=== PATIENT | male | born 1940 | race Hispanic/Latino ===

== ENCOUNTER 2020-04-22 14:17 | Emergency (ER) | payer OTHER, MEDICARE ==
[2020-04-22] MEDS ORDERED: TETANUS/DIPHTHERIA TOXOID [ADULT] 0.5 ML VIAL IM ONE (14:49)
[2020-04-22] MEDS ORDERED: LIDOCAINE 1%-EPI 1:100,000 20 ML VIAL IJ ONE (14:49)
== END 2020-04-22 15:47 | disposition home or self-care (01) ==
LOC: EDH 14:17
DX: S01.81XA Laceration without foreign body of other part of head, initial encounter (principal); I10 Essential (primary) hypertension; E78.00 Pure hypercholesterolemia, unspecified; E07.9 Disorder of thyroid, unspecified; W22.8XXA Striking against or struck by other objects, initial encounter; Y93.01 Activity, walking, marching and hiking; Y92.89 Other specified places as the place of occurrence of the external cause; Y99.8 Other external cause status
CPT/HCPCS: 12053; 70450; 72125; 90471; 90714; 99285; J3490

== ENCOUNTER 2025-09-21 03:45 | Observation (INO) | payer OTHER, MEDICARE ==
[~2025-09-21] VITALS: Ht 154.9 cm; Wt 57.8 kg
--- NOTE | 2025-09-21 04:00 | NUR ---
PT CARE ASSUMED AT THIS TIME
--- NOTE | 2025-09-21 04:00 | NUR ---
PT PRESENTS IN ED ROOM 16 WITH C-COLLAR ON.
--- NOTE | 2025-09-21 04:09 | ERN ---
ED Note History of Present Illness Stated Complaint: MULTIPLE FALL Chief Complaint: Mechanical Fall Time Seen by MD: 03:53 Dictation: This is an 85-year-old very pleasant elderly male who presented to the emergency room as he has been falling multiple times over the past few days. He fell on 09/19 pushing a trash can outside. No evidence of any loss of consciousness no seizure activity no blurred vision or diplopia started experiencing some left- sided rib pain. Apparently 1:30 a.m. this morning he was attempting to go to the bathroom and fell again with same left-sided rib pain and he also began developing bilateral knee pain so the family brought him in for evaluation. The family also noted that he has had a gradual loss of memory and forgetfulness over the past 1 year. The family denied any alcohol intake but he appeared somewhat shaky to me Temperature 97 pulse 72 respirations 20 blood pressure 175/58 with a pulse oximetry of 97% on room air Chronic medical problems include hypertension hypothyroidism hypercholesterolemia and he is a daily cigarette smoker. Allergies: Coded Allergies: No Known Allergies (Unverified Allergy, Unknown, 09/21/25) Past Medical History Past Medical History: High Cholesterol, Hypertension, Hypothyroid, Other Additional Past Medical Hx: POOR HISTORIAN Surgical History: None Family History: Negative Social History: Smokers RN Note Reviewed/Agreed w/PFSH: Yes Review of System Dictation Constitutional: Negative for fever,chills, and weight loss positive for multiple falls Eyes: Negative for injury, pain,redness, and discharge ENT: Negative for injury,pain or swelling Cardiovascular: Negative for chest pain, palpitations, and edema Respiratory: Negative for shortness of breath, cough, and wheezing, Abdomen/GI: Negative for abdominal pain, nausea, vomiting, diarrhea, and constipation Back: Negative for injury and pain : Negative for injury, bleeding and discharge MS/Extremity: Negative for injury and deformity Skin: Negative for rash, and discoloration Neuro: Negative for headache, weakness, numbness, tingling, and seizure progressive memory loss and forgetfulness Psych: Negative for suicide ideation, homicidal ideation, and hallucinations Initial Vital Sign VS Vital Signs Date Time Temp Pulse Resp B/P (MAP) Pulse Ox O2 Delivery O2 Flow Rate FiO2 09/21/25 03:46 97.0 72 20 175/58 97 Room Air 09/21/25 04:10 0 21 Physical Exam Dictation General: awake, alert, NAD frail elderly male who is somewhat slow to understand, somewhat tremulous and shaky Head/Face: Normocephalic, atraumatic Eyes: PERRL, EOMI, vision at baseline ENT: oral cavity clear, TMs clear, no signs of infection Neck: Trachea midline, supple, no nuchal rigidity Cardiovascular: RRR, normal S1/S2, No MRGs, no JVD Respiratory: CTAB, no respiratory distress, No rales or wheezes Abdomen: Soft, non-tender, non-distended, normal bowel sounds, no guarding or rebound. Skin: Warm, dry, normal turgor, no rash MS/Extremity: Pulses equal, no cyanosis, neurovascular intact, FROM Neuro: COAx4, GCS 15, strength 5/5, CN 2-12 intact, normal cerebellar exam, I did not test his gait no cogwheel rigidity Psych: Normal behavior, mood, and affect normal Extremities-trace edema without any palpable cords, Homans sign is negative Results (Laboratory/Radiology) Laboratory/Radiology Laboratory Tests Test 09/21/25 04:46 White Blood Count 8.7 K/uL (4.8-10.8) Red Blood Count 3.27 MIL/uL (4.50-6.20) L Hemoglobin 11.1 g/dL (14.0-18.0) L Hematocrit 33.8 % (42-54) L Mean Corpuscular Volume 103.4 fL (79-99) H Mean Corpuscular Hemoglobin 33.9 pg (27.0-33.0) H Mean Corpuscular Hemoglobin Concent 32.8 g/dL (32.0-36.0) Red Cell Distribution Width 12.9 % (11.0-15.5) Platelet Count 178 K/uL (130-400) Mean Platelet Volume 9.9 fL (7.5-10.5) Immature Granulocyte % (Auto) 0.2 % (0-1) Neutrophils (%) (Auto) 68.6 % (40.0-77.0) Lymphocytes (%) (Auto) 20.0 % (21.0-51.0) L Monocytes (%) (Auto) 8.8 % (3.0-13.0) Eosinophils (%) (Auto) 2.3 % (0.0-8.0) Basophils (%) (Auto) 0.1 % (0.0-5.0) Neutrophils # (Auto) 6.0 K/uL (1.8-7.7) Lymphocytes # (Auto) 1.7 K/uL (1.0-4.8) Monocytes # (Auto) 0.8 K/uL (0.1-1.0) Eosinophils # (Auto) 0.20 K/uL (0.00-0.70) Basophils # (Auto) 0.01 K/uL (0.00-0.20) Absolute Immature Granulocyte (auto 0.02 K/uL (0-1) Nucleated Red Blood Cells 0.0 % (0.0-0.19) Urine Color LIGHT-YELLOW (YELLOW) Urine Appearance CLEAR (CLEAR) Urine pH 7.5 (5.0-8.0) Urine Specific [place] 1.009 (1.001-1.031) Urine Protein NEGATIVE mg/dL (NEGATIVE) Urine Glucose (UA) NEGATIVE mg/dL (NEGATIVE) Urine Ketones NEGATIVE mg/dL (NEGATIVE) Urine Occult Blood +- (TRACE) (NEGATIVE) H Urine Nitrate NEGATIVE (NEGATIVE) Urine Bilirubin NEGATIVE mg/dL (NEGATIVE) Urine Urobilinogen 0.2 mg/dL (0.2-1.0) Urine Leukocyte Esterase NEGATIVE [place]/uL Urine RBC 6-10 /HPF (0-1) H Urine WBC 0-1 /HPF (0-1) Urine Bacteria None /HPF (None Seen) Sodium Level 137 mmol/L (136-145) Potassium Level 3.9 mmol/L (3.5-5.1) Chloride Level 101 mmol/L (101-111) Carbon Dioxide Level 27 mmol/L (21-32) Blood Urea Nitrogen 15 mg/dL (7-18) Creatinine 1.0 mg/dL (0.5-1.3) Glomerular Filtration Rate Calc 73 mL/min (>90) Random Glucose 128 mg/dL (70-105) H Total Calcium 9.2 mg/dL (8.5-10.1) Total Creatine Kinase 102 U/L (21-232) Troponin I High Sensitivity 18.6 ng/L (4-75) Labs Reviewed?: Yes X-RAY Comment: REASON: fall with rib pains ORDERING PHYSICIAN: LORRIE ASKEW MD PROCEDURE: KNEE 2VBIL - KNEE 2VW BILATERAL EXAM: CR right Knee, 3 View. CLINICAL HISTORY: fall with rib pains COMPARISON: None provided. FINDINGS: BONES: No acute fracture or aggressive appearing osseous lesion. JOINTS: Tricompartmental osteoarthritic changes with marginal osteophytes and tibiofemoral and patellofemoral joint space reduction. Mild joint effusion appreciated. SOFT TISSUES: The soft tissues are unremarkable. Fabella noted. Vascular calcification noted. 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 No acute fracture/dislocation in both knees. Suggest CT if clinically warranted. /[place] DICTATED BY: AARON ROBERTS Jr., MD DATE: 09/21/25552 ELECTRONICALLY SIGNED BY: AARON ROBERTS Jr., MD DATE: 09/21/25552 REASON: fall with rib pains ORDERING PHYSICIAN: LORRIE ASKEW MD PROCEDURE: CXR1VW - CHEST 1VW EXAM: CR Chest, 1 view CLINICAL HISTORY: Fall. COMPARISON: None provided. FINDINGS: The lungs show no infiltrates or other acute findings. No pleural effusion or pneumothorax. The cardiomediastinal silhouette is within normal limits. No acute osseous abnormality. Mild osteopenia. Degenerative osseous changes. IMPRESSION: No acute cardiopulmonary process is evident. /[place] DICTATED BY: AARON ROBERTS Jr., MD DATE: 09/21/25608 ELECTRONICALLY SIGNED BY: AARON ROBERTS Jr., MD DATE: 09/21/25608 ED Course ED Course Orders Procedure Category Date Status Time Cardiac Panel LAB 09/21/25 Complete 04:06 Cbc With Differential LAB 09/21/25 Complete 04:06 Basic Metabolic Panel LAB 09/21/25 Complete 04:06 Urinalysis Profile LAB 09/21/25 Complete 04:06 Chest 1vw RAD 09/21/25 Resulted 04:06 Knee 2vw Bilateral RAD 09/21/25 Resulted 04:06 Acetaminophen 500mg PHA 09/21/25 Complete Tab (Tylenol 500mg T 04:30 Vital Signs Every 4 CPOE 09/21/25 Transmitted Hours 05:44 Orthostatic Vital CPOE 12/14/25 Transmitted Signs 05:44 Daily Weights CPOE 09/21/25 Transmitted 05:44 I&O Q Shift CPOE 09/21/25 Transmitted 05:44 Activity: Bed Rest CPOE 09/21/25 Transmitted 05:44 Heart Healthy Diet DIET 09/21/25 Transmitted Breakfast Cbc With Differential LAB 09/22/25 Verified 04:00 Basic Metabolic Panel LAB 09/22/25 Verified 04:00 Magnesium LAB 09/22/25 Verified 04:00 Phosphorus LAB 09/22/25 Verified 04:00 Lactated Ringers PHA 09/21/25 In Process 1000ml (Lactated 06:00 Ascorbic Acid 500mg PHA 09/21/25 In Process Tab (Vitamin C 500mg 09:00 Polyethylene Glycol PHA 09/21/25 In Process 3350 (Miralax 3350 1 09:00 Acetaminophen 325 Tab PHA 09/21/25 In Process (Tylenol 325mg Tab 06:00 Acetaminophen 650mg PHA 09/21/25 In Process Supp (Tylenol 650mg 06:00 Hydrocodone/Apap PHA 09/21/25 In Process 5/325 ([place] 5/325mg) 06:00 Ondansetron 4mg Inj PHA 09/21/25 In Process (Zofran 4mg Inj) 06:00 Hydralazine 20mg Inj PHA 09/21/25 In Process (Apresoline 20mg In 06:00 Labetalol 20mg Syg PHA 09/21/25 In Process (Trandate 20mg Syg) 06:00 Apply Scds CPOE 09/21/25 Transmitted 05:44 Elevate Hob At 30 CPOE 09/21/25 Transmitted Degrees 05:44 Admit Orders ADM 09/21/25 Transmitted 05:44 Telemetry Monitoring CPOE 09/21/25 Transmitted 05:44 Initiate PATRICIA 09/21/25 In Process Hyperglycemia Protoco 05:44 Edm Admit Bridge Order ADM 09/21/25 Transmitted 05:51 Current Medications Medications (Trade) Dose Ordered Sig/Christian Route PRN Reason Start Time Stop Time Status Last Admin Dose Admin Acetaminophen (TYLenol 500MG TAB) 1,000 mg ONCE ONCE PO 09/21/25 04:30 09/21/25 04:31 DC 09/21/25 05:24 Vital Signs Date Time Temp Pulse Resp B/P (MAP) Pulse Ox O2 Delivery O2 Flow Rate FiO2 09/21/25 06:57 75 15 155/45 97 Room Air* 0 21 09/21/25 05:55 69 16 155/63 98 Room Air* 0 21 09/21/25 04:10 97.0 89 17 167/63 98 Room Air* 0 21 09/21/25 03:46 97.0 72 20 175/58 97 Room Air Medical Decision Making MDM Differential diagnosis: Unsteady gait and multiple falls-volume depletion, neuropathy related to B12 or folate deficiency, myopathy related to hypothyroidism, alcoholic myopathy, cerebellar etiology, Parkinson's This is an 85-year-old very pleasant elderly male who presented to the emergency room as he has been falling multiple times over the past few days. He fell on 09/19 pushing a trash can outside. No evidence of any loss of consciousness no seizure activity no blurred vision or diplopia started experiencing some left- sided rib pain. Apparently 1:30 a.m. this morning he was attempting to go to the bathroom and fell again with same left-sided rib pain and he also began developing bilateral knee pain so the family brought him in for evaluation. The family also noted that he has had a gradual loss of memory and forgetfulness over the past 1 year. The family denied any alcohol intake but he appeared somewhat shaky to me Temperature 97 pulse 72 respirations 20 blood pressure 175/58 with a pulse oximetry of 97% on room air Chronic medical problems include hypertension hypothyroidism hypercholesterolemia and he is a daily cigarette smoker. 5:15 a.m. labs reviewed CBC shows a hemoglobin of 11.1 MCV 103. BNP 7 shows a BUN and creatinine of 15 and 1.0 urinalysis is unremarkable troponins are negative. Chest x-ray is unremarkable for any acute infiltrate I had a long discussion with the patient and his son and updated them on test results as well as my concerns for frequent falls and need for further evaluation and physical therapy assessment. They are agreeable 5:45 a.m. patient accepted by [facility] mid-level provider for [facility] for admission and further management Rationale: Tests considered and ordered secondary to shared decision making include: labs, ECG and radiology Previous outside records reviewed: Old ER visits. Risk of complication and/or morbidity or mortality of patient management: None Medications-Per medication reconciliation Need for hospitalization: Patient does meet criteria for hospitalization. Need for emergency major/minor surgery: No There are no social concerns with this patient. Prescription drug management Prescriptions will include symptomatic care Patient's prior external medical records from other ER visits were reviewed by me as indicated. Prior testing and results from previous visits were reviewed. Prior tests were taken into account with medical decision making and resource utilization, independent historian/historians were used to obtain complete medical history. I independently interpreted the test that were performed, results were reviewed by me and considered findings on radiology if ordered. Medical management and examination interpretation discussions were had by me with other qualified healthcare professionals as indicated for the patient's care. Problem List Problem List: (1) Multiple falls (2) Hypertension (3) Hypothyroidism (4) Contusion of knee (5) Macrocytic anemia DX & DISP Disposition: Inpatient Decision to Admit Time: 05:37 Departure Impression: Primary Impression: Multiple falls Additional Impressions: Contusion of knee, Hypothyroidism, Hypertension, Macrocytic anemia Condition: Stable Additional Instructions: Patient was informed of all the diagnostic labs and procedures conducted in the emergency room today and demonstrated understanding of the results. I personally reviewed and interpreted all the diagnostic exams performed in the ER today. The patient will be admitted to the hospital for further treatment and evaluation. Disposition-admit to facility Condition-stable/guarded Course-uncertain at this time Pain status-decreased Assessment-exam unchanged Admission Certification- I certify that the patients status is appropriate and is based on my best clinical judgment and the patient's condition as documented in the medical records Referrals: JACLYN JASSO DO (PCP) LORRIE ASKEW MD Sep 21, 2025 04:09
--- NOTE | 2025-09-21 04:16 | NUR ---
PATIENT VERBALLY DENIES PAIN AT THIS TIME AND STATES "NO" WHEN ASKED IF IN PAIN BY ED RN. NO FACIAL GRIMACING, GAURDING, OR SIGNS OF ACUTE DISTRESS NOTED DURING ASSESSMENT. FAMILY PRESENTS AT BEDSIDE REPORTS "PT IS IN PAIN TO LEFT HIP AND RIGHT SHOULDER." PT CONTINUES TO DENY PAIN.
--- NOTE | 2025-09-21 04:53 | HMCIMG ---
EXAM: CR right Knee, 3 View. CLINICAL HISTORY: fall with rib pains COMPARISON: None provided. FINDINGS: BONES: No acute fracture or aggressive appearing osseous lesion. JOINTS: Tricompartmental osteoarthritic changes with marginal osteophytes and tibiofemoral and patellofemoral joint space reduction. Mild joint effusion appreciated. SOFT TISSUES: The soft tissues are unremarkable. Fabella noted. Vascular calcification noted. 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 No acute fracture/dislocation in both knees. Suggest CT if clinically warranted. /[place]
[2025-09-21 04:59] LABS: IMMATURE GRANULOCYTE ABSOLUTE 0.02 K/uL (0-1); NUCLEATED RED BLOOD CELLS 0.0 % (0.0-0.19); PLATELET COUNT (AUTO) 178 K/uL (130-400); RED BLOOD CELL COUNT(AUTO) 3.27 MIL/uL (4.50-6.20); RED CELL DISTRIBUTION WIDTH 12.9 % (11.0-15.5); WHITE BLOOD COUNT (AUTO) 8.7 K/uL (4.8-10.8)
[2025-09-21 05:01] LABS: APPEARANCE,URINE CLEAR (CLEAR); GLUCOSE, URINE (UA) NEGATIVE (NEGATIVE); LEUKOCYTE ESTERASE ,URINE NEGATIVE Leu/uL (NEGATIVE); NITRATE,URINE NEGATIVE (NEGATIVE); OCCULT BLOOD,URINE +- (TRACE) (NEGATIVE)
[2025-09-21 05:04] LABS: ADD UA MICROSCOPIC YES
[2025-09-21 05:09] LABS: CREATININE 1.0 mg/dL (0.5-1.3); GLOMERULAR FILTR. RATE CALC 73.0 mL/min (>90); GLUCOSE,RANDOM 128.0 mg/dL (70-105); SODIUM SERUM 137.0 mmol/L (136-145); UREA NITROGEN, BLOOD 15.0 mg/dL (7-18)
--- NOTE | 2025-09-21 05:10 | HMCIMG ---
EXAM: CR Chest, 1 view CLINICAL HISTORY: Fall. COMPARISON: None provided. FINDINGS: The lungs show no infiltrates or other acute findings. No pleural effusion or pneumothorax. The cardiomediastinal silhouette is within normal limits. No acute osseous abnormality. Mild osteopenia. Degenerative osseous changes. IMPRESSION: No acute cardiopulmonary process is evident. /[place]
[2025-09-21 05:16] LABS: CREATINE KINASE, TOTAL 102.0 U/L (21-232)
--- NOTE | 2025-09-21 05:29 | NUR ---
C-COLLAR REMOVED BY ED MD ASKEW AT BEDSIDE AT THIS TIME
[2025-09-21] MEDS ORDERED: HYDROcodone/APAP 5/325 1 TAB TABLET PO PRN (06:00)
[2025-09-21] MEDS: LACTATED RINGERS 1000ML 1,000 ML IV SCH (06:52)
--- NOTE | 2025-09-21 07:08 | NUR ---
REPORT GIVEN TO SANDHYA AUSTIN AT THIS TIME
[2025-09-21] MEDS: ENOXAPARIN SODIUM 40 MG/0.4 ML SYRINGE SQ SCH (09:00)
[2025-09-21] MEDS: ASCORBIC ACID 500 MG TAB PO SCH (09:00)
[2025-09-21] MEDS ORDERED: FAMOTIDINE 20MG TAB PO ONE (09:00)
[2025-09-21 09:47] LABS: CREATINE KINASE, TOTAL 106.0 U/L (21-232)
[2025-09-21 09:47] LABS: AMPHET/METH SCREEN,URINE NEGATIVE (NEGATIVE); BARBITURATE SCREEN, URINE NEGATIVE (NEGATIVE); CANNABINOID SCREEN,URINE NEGATIVE (NEGATIVE); COCAINE SCREEN,URINE NEGATIVE (NEGATIVE)
--- NOTE | 2025-09-21 10:00 | NUR ---
CALLED PHARMACY TO NOTIFY ABOUT VITAMIN C NOT BEING IN THE CORRECT SPOT IN [place]; MEDICATION NOT GIVEN FOR THIS REASON. PENDING RESOLUTION
--- NOTE | 2025-09-21 10:41 | HP ---
[facility] HISTORY & PHYSICAL Date Patient Seen: Sep 21, 2025 Time of Visit: 10:41 Supervising Physician: Dr.Jairo Chavez Primary Care Physician: Dr. 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 As per this is the 2nd time he falls he fell earlier this week on 09/19 pushing a trash can outside. Patient is a poor historian but asked her why he had no LOC, no seizure activity, no blurred vision, headaches, nausea, vomiting or chest pain. Apparently 1:30 a.m. this morning he was attempting to go to the bathroom and fell again with same left- sided rib pain and he also began developing bilateral knee pain so the family brought him in for evaluation. The family also noted that he has had a gradual loss of memory and forgetfulness over the past 1 year. Family denies any alcohol intake but reports patient smokes daily. Temperature 97 pulse 72 respirations 20 blood pressure 175/58 with a pulse oximetry of 97% on room air. WBCs 8.7, hemoglobin 11.1, hematocrit 33.8, platelets 178, Sodium 137, potassium 3.9, Creatinine 1.0, BUN 15 , GFR 73. Chest x-ray reveals mild osteopenia. Bilateral knee x-ray shows tricompartmental osteoarthritis. Upon assessment patient is a quietly in bed with at bedside. Patient is awake alert and oriented x3. Patient denied chest pain, loss of consciousness, headaches, blurred vision. He reports pain to the right shoulder. is asking why do his legs hurt so much explained to her result of bilateral knee x- ray patient has osteoarthritis. Explained plan of care to patient and will continue to monitor vital signs and lab. We will resume home medication once entered. PLAN Continue with IV fluid Fall precaution Pending right extremity x-ray Pending head CT Monitor vital signs per protocol Continue home medication Follow a.m. labs Physical therapy to evaluate and treat PAST MEDICAL HX: see above PAST SURGICAL HX: noncontributory SOCIAL HISTORY: Tobacco use, denies ETOH, and illicit drug use Coded Allergies: No Known Allergies (Unverified Allergy, Unknown, 09/21/25) REVIEW OF SYSTEMS: 12 point ROS reviewed with patient. Pertinent positives mentioned above. Otherwise negative. PHYSICAL EXAM: GENERAL: alert, weak, awake oriented x 3 HEENT: EOMI, Sclera non icteric, moist mucosa NECK: Supple, no JVD, trachea midline LUNGS: Clear breath sounds bilaterally. No wheezes HEART: Regular rate and rhythm. Normal S1 and S2, without murmurs ABD: Abdomen soft, nontender. Bowel sounds present EXT: No clubbing cyanosis or edema, decreased range of motion to bilateral lower extremities patient uses a walker at home NEURO: Alert and oriented to person, follows commands Vital Signs (last 8hr) Date Time Temp Pulse Resp B/P (MAP) Pulse Ox O2 Delivery O2 Flow Rate FiO2 09/21/25 06:57 75 15 155/45 97 Room Air* 0 21 09/21/25 05:55 69 16 155/63 98 Room Air* 0 21 09/21/25 04:10 97.0 89 17 167/63 98 Room Air* 0 21 09/21/25 03:46 97.0 72 20 175/58 97 Room Air LABS: Hematology Labs: Test 09/21/25 04:46 Range/Units White Blood Count 8.7 4.8-10.8 K/uL Red Blood Count 3.27 L 4.50-6.20 MIL/uL Hemoglobin 11.1 L 14.0-18.0 g/dL Hematocrit 33.8 L 42-54 % Mean Corpuscular Volume 103.4 H 79-99 fL Mean Corpuscular Hemoglobin 33.9 H 27.0-33.0 pg Mean Corpuscular Hemoglobin Concent 32.8 32.0-36.0 g/dL Red Cell Distribution Width 12.9 11.0-15.5 % Platelet Count 178 130-400 K/uL Mean Platelet Volume 9.9 7.5-10.5 fL Immature Granulocyte % (Auto) 0.2 0-1 % Neutrophils (%) (Auto) 68.6 40.0-77.0 % Lymphocytes (%) (Auto) 20.0 L 21.0-51.0 % Monocytes (%) (Auto) 8.8 3.0-13.0 % Eosinophils (%) (Auto) 2.3 0.0-8.0 % Basophils (%) (Auto) 0.1 0.0-5.0 % Neutrophils # (Auto) 6.0 1.8-7.7 K/uL Lymphocytes # (Auto) 1.7 1.0-4.8 K/uL Monocytes # (Auto) 0.8 0.1-1.0 K/uL Eosinophils # (Auto) 0.20 0.00-0.70 K/uL Basophils # (Auto) 0.01 0.00-0.20 K/uL Absolute Immature Granulocyte (auto 0.02 0-1 K/uL Nucleated Red Blood Cells 0.0 0.0-0.19 % Chemistry Labs: Test 09/21/25 04:46 Range/Units Sodium Level 137 136-145 mmol/L Potassium Level 3.9 3.5-5.1 mmol/L Chloride Level 101 101-111 mmol/L Carbon Dioxide Level 27 21-32 mmol/L Blood Urea Nitrogen 15 7-18 mg/dL Creatinine 1.0 0.5-1.3 mg/dL Glomerular Filtration Rate Calc 73 >90 mL/min Random Glucose 128 H 70-105 mg/dL Total Calcium 9.2 8.5-10.1 mg/dL Magnesium Level 2.00 1.80-2.40 mg/dL Total Creatine Kinase 106 21-232 U/L Troponin I High Sensitivity 18.6 4-75 ng/L Thyroid Stimulating Hormone (TSH) 6.52 H 0.36-3.74 uIU/mL PLAN NEURO: Minimize central acting medications as possible. Maintain fall precautions, adequate lighting during the day PULMONARY: Supplemental 02 as needed. Maintain aspiration precautions at all times CARDIOVASCULAR: Follow hemodynamics. Vital signs per facility protocol GI & NUTRITION: Continue with nutritional support. Continue stool softeners and laxatives as needed. KIDNEYS & ELECTROLYTES: Strict monitoring of intake, output and overall fluid balance. Avoid nephrotoxic medications to the extent possible. Medications to be dosed according to renal function. Monitor electrolytes and replace as needed ENDOCRINE: Maintain blood glucose between 100-180 at all times. Hypoglycemia protocol in place INFECTIOUS DISEASE: Trend temperature, WBC and procalcitonin level Follow cultures, deescalate antibiotics as soon as possible. Panculture if new onset fever ONCOLOGY/HEMATOLOGY/COAGULATION: Monitor for s/s of bleeding Monitor hemoglobin, coagulation studies as needed SKIN: Pressure ulcer prevention per facility protocol Specialty mattress ORTHO/REHAB: Continue PT/OT Prophylaxis: Continue GI and DVT prophylaxis Lovenox and Pepcid Code Status: Full Resuscitation Disposition: TBD Other: Total patient care time exceeds 35 minutes excluding all procedures. VERONICA XAVIER DIRECTOR WEIGHTS AND MEASURES Sep 21, 2025 10:41
--- NOTE | 2025-09-21 15:04 | HMCIMG ---
EXAM: XR Left Shoulder 1 View. CLINICAL HISTORY: Fall COMPARISON: None provided. FINDINGS: BONES: No acute fracture or focal osseous lesion. Minimal periosteal reaction is seen at the mid humeral shaft. For correlation with point of maximum tenderness and CT if clinically warranted. JOINTS: No dislocation. Minimal osteoarthritic changes are seen at the glenohumeral joint as well as the acromioclavicular joint with relatively narrowed joint spaces. SOFT TISSUES: The soft tissues are unremarkable. IMPRESSION: 1. Minimal osteoarthritic changes at the glenohumeral and acromioclavicular joints. 2. Minimal periosteal reaction at the mid humeral shaft. 3. For correlation with point of maximum tenderness and CT if clinically warranted. /[place]
[2025-09-21 16:20] VITALS: BP 174/68; PULSE 64; RESP 18; TEMP 97.7; O2SAT 96
--- NOTE | 2025-09-21 16:20 | NUR ---
PATIENT ARRIVED ON UNIT VIA STRETCHER. NO DISTRESS OR PAIN VERBALIZED BY PT OR NOTED. WILL CONTINUE TO MONITOR.
--- NOTE | 2025-09-21 16:49 | HMCIMG ---
EXAMINATION: CT Head without Contrast CLINICAL HISTORY: Fall. TECHNIQUE: Noncontrast axial CT images of the head were obtained from the skull base through the vertex. Multiplanar reformatted images were reviewed. Radiation Dose: CTDIvol 57.5 mGy; DLP 1039.[address] scans at this facility utilize dose modulation, iterative reconstruction, and/or weight-based dosing when appropriate to minimize radiation exposure. COMPARISON: No prior studies available for comparison.FINDINGS: Brain Parenchyma: Prominence of the cerebral sulcal spaces and basal cisterns is present with ex vacuo dilatation of the ventricular system, consistent with generalized cerebral volume loss. Diffuse periventricular hypodensities are noted, suggestive of chronic small vessel ischemic changes. An old lacunar infarct is identified in the right ravi radiata. No acute intracranial hemorrhage, mass effect, midline shift, or acute territorial infarct is seen. Ventricular System and CSF Spaces: Ex vacuo prominence of the ventricles is present. Basal cisterns are patent. Vascular Structures: Atheromatous calcifications are present involving the intracranial arteries. Extra-axial Spaces: No extra-axial collection is identified. Calvarium and Skull Base: The visualized calvarium and skull base are intact.IMPRESSION: * No acute intracranial abnormality on this noncontrast CT examination. * Generalized cerebral atrophy with chronic small vessel ischemic changes. 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 /[place]
[2025-09-21] MEDS ORDERED: OMEG-131 PO (17:05)
[2025-09-21] MEDS ORDERED: LISI10TA24 PO (17:06)
[2025-09-21] MEDS ORDERED: LEVO25CA5 PO (17:06)
[2025-09-21] MEDS ORDERED: VITA1CAP17 PO (17:08)
[2025-09-21] MEDS ORDERED: MULT-1203 PO (17:08)
[2025-09-21] MEDS ORDERED: ATOR40TA71 PO (17:09)
[2025-09-21] MEDS ORDERED: CALC-1125 PO (17:09)
[2025-09-21] MEDS ORDERED: METO50TA18 PO (17:10)
[2025-09-21 20:00] VITALS: PULSE 76; RESP 22; TEMP 98.4; O2SAT 97
[2025-09-21] MEDS: FISH OIL 1000 MG/CAP PO SCH (21:55)
[2025-09-21] MEDS: FAMOTIDINE 20MG TAB PO SCH (21:55)
[2025-09-21 22:00] VITALS: BP 169/62
[2025-09-22] VITALS (8 sets, daily range): BP systolic 137–165; BP diastolic 56–79; PULSE 55–96; RESP 17–24; TEMP 97.8–98.9; O2SAT 99–100
[2025-09-22 06:10] LABS: IMMATURE GRANULOCYTE ABSOLUTE 0.02 K/uL (0-1); NUCLEATED RED BLOOD CELLS 0.0 % (0.0-0.19); PLATELET COUNT (AUTO) 173 K/uL (130-400); RED BLOOD CELL COUNT(AUTO) 3.55 MIL/uL (4.50-6.20); RED CELL DISTRIBUTION WIDTH 12.6 % (11.0-15.5); WHITE BLOOD COUNT (AUTO) 7.4 K/uL (4.8-10.8)
[2025-09-22 06:32] LABS: CREATININE 0.9 mg/dL (0.5-1.3); GLOMERULAR FILTR. RATE CALC 83.0 mL/min (>90); GLUCOSE,RANDOM 93.0 mg/dL (70-105); PHOSPHORUS 3.3 mg/dL (2.5-4.9); SODIUM SERUM 140.0 mmol/L (136-145); UREA NITROGEN, BLOOD 10.0 mg/dL (7-18)
[2025-09-22] MEDS: (Calcium Carbonate (Calcium) 600 MG) PO SCH (09:00)
[2025-09-22] MEDS: (Vitamin B Complex & Vit C No.3 (B Complex with Vitamin C) PO SCH (09:00)
[2025-09-22] MEDS: TROLAMINE SALICYLATE CREAM 85 GM TUBE TP SCH (09:00)
[2025-09-22] MEDS: ASPIRIN 81 MG EC TAB PO SCH (10:42)
[2025-09-22] MEDS: MULTIVITAMIN TABLET PO SCH (10:43)
[2025-09-22] MEDS: LISINOPRIL 10 MG TABLET PO SCH (10:43)
--- NOTE | 2025-09-22 12:09 | NUR ---
DCP: HOME Per Pavel Marte [phone], she assists pt as needed with his ADLS. Prior o dc, p used no DME or in home care services. PCP is seen at [facility] for medical care and meds, uses [facility] for rx. Per , she will take pt home a dc. Dgr Mely Thomason [phone] and son Ed Marte [phone]
--- NOTE | 2025-09-22 12:17 | PN ---
[facility] PROGRESS NOTE Date Patient Seen: Sep 22, 2025 Time of Visit: 12:17 Supervising Physician: Dr. Arenas Primary Care Physician: Dr. 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 at bedside. Patient is awake alert and oriented x3. Patient denied chest pain, loss of consciousness, headaches, blurred vision nausea or vomiting.VS signs stable. CT of right shoulder done but pending to read. Continues to complain of severe pain to right arm. refuses SNF and wants to take patient home. Anticipate discharge once CT arm results. PLAN Pending right shoulder CT Continue with IV fluid Fall precaution Monitor vital signs per protocol Continue home medication Follow a.m. labs Physical therapy to evaluate and treat DC planning for home with REVIEW OF SYSTEMS: 12 point ROS reviewed with patient. Pertinent positives mentioned above. Otherwise negative. PHYSICAL EXAM: GENERAL: alert, weak, awake oriented x 3 HEENT: EOMI, Sclera non icteric, moist mucosa NECK: Supple, no JVD, trachea midline LUNGS: Clear breath sounds bilaterally. No wheezes HEART: Regular rate and rhythm. Normal S1 and S2, without murmurs ABD: Abdomen soft, nontender. Bowel sounds present EXT: No clubbing cyanosis or edema, decreased range of motion to bilateral lower extremities patient uses a walker at home NEURO: Alert and oriented to person, follows commands Vital Signs (last 8hr) Date Time Temp Pulse Resp B/P (MAP) Pulse Ox O2 Delivery O2 Flow Rate FiO2 09/22/25 07:51 98.1 59 18 163/79 100 Room Air 21 LABS: Hematology Labs: Test 09/22/25 06:02 Range/Units White Blood Count 7.4 4.8-10.8 K/uL Red Blood Count 3.55 L 4.50-6.20 MIL/uL Hemoglobin 11.8 L 14.0-18.0 g/dL Hematocrit 35.5 L 42-54 % Mean Corpuscular Volume 100.0 H 79-99 fL Mean Corpuscular Hemoglobin 33.2 H 27.0-33.0 pg Mean Corpuscular Hemoglobin Concent 33.2 32.0-36.0 g/dL Red Cell Distribution Width 12.6 11.0-15.5 % Platelet Count 173 130-400 K/uL Mean Platelet Volume 9.7 7.5-10.5 fL Immature Granulocyte % (Auto) 0.3 0-1 % Neutrophils (%) (Auto) 70.9 40.0-77.0 % Lymphocytes (%) (Auto) 17.3 L 21.0-51.0 % Monocytes (%) (Auto) 8.6 3.0-13.0 % Eosinophils (%) (Auto) 2.6 0.0-8.0 % Basophils (%) (Auto) 0.3 0.0-5.0 % Neutrophils # (Auto) 5.2 1.8-7.7 K/uL Lymphocytes # (Auto) 1.3 1.0-4.8 K/uL Monocytes # (Auto) 0.6 0.1-1.0 K/uL Eosinophils # (Auto) 0.19 0.00-0.70 K/uL Basophils # (Auto) 0.02 0.00-0.20 K/uL Absolute Immature Granulocyte (auto 0.02 0-1 K/uL Nucleated Red Blood Cells 0.0 0.0-0.19 % Chemistry Labs: Test 09/22/25 06:02 09/21/25 04:46 Range/Units Sodium Level 140 136-145 mmol/L Potassium Level 4.0 3.5-5.1 mmol/L Chloride Level 104 101-111 mmol/L Carbon Dioxide Level 28 21-32 mmol/L Blood Urea Nitrogen 10 7-18 mg/dL Creatinine 0.9 0.5-1.3 mg/dL Glomerular Filtration Rate Calc 83 >90 mL/min Random Glucose 93 70-105 mg/dL Total Calcium 9.3 8.5-10.1 mg/dL Phosphorus Level 3.3 2.5-4.9 mg/dL Magnesium Level 2.00 1.80-2.40 mg/dL Total Creatine Kinase 106 21-232 U/L Troponin I High Sensitivity 18.6 4-75 ng/L Thyroid Stimulating Hormone (TSH) 6.52 H 0.36-3.74 uIU/mL PLAN NEURO: Minimize central acting medications as possible. Maintain fall precautions, adequate lighting during the day PULMONARY: Supplemental 02 as needed. Maintain aspiration precautions at all times CARDIOVASCULAR: Follow hemodynamics. Vital signs per facility protocol GI & NUTRITION: Continue with nutritional support. Continue stool softeners and laxatives as needed. KIDNEYS & ELECTROLYTES: Strict monitoring of intake, output and overall fluid balance. Avoid nephrotoxic medications to the extent possible. Medications to be dosed according to renal function. Monitor electrolytes and replace as needed ENDOCRINE: Maintain blood glucose between 100-180 at all times. Hypoglycemia protocol in place INFECTIOUS DISEASE: Trend temperature, WBC and procalcitonin level Follow cultures, deescalate antibiotics as soon as possible. Panculture if new onset fever ONCOLOGY/HEMATOLOGY/COAGULATION: Monitor for s/s of bleeding Monitor hemoglobin, coagulation studies as needed SKIN: Pressure ulcer prevention per facility protocol Specialty mattress ORTHO/REHAB: Continue PT/OT Prophylaxis: Continue GI and DVT prophylaxis Lovenox and Pepcid Code Status: Full Resuscitation Disposition: TBD Other: Total patient care time exceeds 35 minutes excluding all procedures. VERONICA XAVIER APRN Sep 22, 2025 12:17 CLAUDINE LEUNG DNP Sep 22, 2025 22:54
--- NOTE | 2025-09-22 14:00 | NUR ---
CT SCAN SHOULDER
[2025-09-22 19:54] LABS: SARS-CoV-2, RNA, NAAT NEGATIVE SARS CoV-2 (NEGATIVE)
[2025-09-22 19:56] LABS: INFLUENZA TYPE A Negative For Type A (NEGATIVE); INFLUENZA TYPE B Negative For Type B (NEGATIVE)
--- NOTE | 2025-09-22 22:38 | HMCIMG ---
CT Right Shoulder Without Contrast Clinical History: Right shoulder pain. Technique: Non-contrast CT of the right shoulder was performed. Comparison: Right shoulder radiographs dated September 21, 2025. Radiation Dose: Total CTDIvol 10.7 mGy; total DLP 284.1 mGycm. Findings: Gleno-Humeral Joint: Marginal osteophytes are present on either side of the joint. There is reduction of the joint space with subchondral sclerosis. Acromio-Clavicular Joint: Degenerative changes are present and stable compared to prior imaging. Rotator Cuff and Tendons: Multifocal calcifications in the supraspinatus tendon are noted, suggestive of calcific tendinitis. Bones: No acute fracture or dislocation. Lungs and Pleura: Small right pleural effusion. A right perifissural lung nodule measuring 6 mm x 4 mm is seen (series 2, image 108/111). Additionally, a right upper lobar subpleural nodule measuring 2 mm is noted (series 2, image 85/111). These nodules are small and incidentally detected. Impression: 1. 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 2. Multifocal calcifications in the supraspinatus tendon, consistent with calcific tendinitis. 3. Small right pleural effusion. 4. Right perifissural lung nodule measuring 6 mm x 4 mm (series 2, image 108/111); no follow-up required.Right upper lobar subpleural nodule measuring 2 mm (series 2, image 85/111); follow-up CT in 12 months may be considered. 5. In comparison with the prior right shoulder radiographs dated September 21, 2025, there are stable degenerative changes in the acromio-clavicular and gleno-humeral joints, the supraspinatus calcific tendinitis. /[place]
--- NOTE | 2025-09-22 22:44 | NUR ---
telemetry and daughter refusing telemetry for the patient because it "itches and bothers his skin." I explained the risks of not having it and they understanding. signed refusal form
[2025-09-23] VITALS: BP 169/90; PULSE 55; RESP 20; TEMP 98.3
[2025-09-23 04:01] VITALS: BP 153/62; PULSE 55; RESP 18; TEMP 97.8
--- NOTE | 2025-09-23 05:29 | NUR ---
NURSE NOTE PATIENT ALERT AND ORIENTED TIMES PERSON. AND DAUGHTER AT BEDSIDE. PLAN OF CARE DISCUSSED WITH THEM AND THEY VERBALIZED UNDERSTANDING. PATIENT IS AGITATED AND CONFUSED. HE ONLY SLEPT FOR ABOUT 30 MINUTES. HE TRIES TO GET OUT OF THE BED AND PULLS AT HIS IV CATHETER. VIPIN AND I TURN HIM ON HIS SIDES TO PREVENT SKIN BREAKDOWN. PATIENT SWALLOWS 1 PILL AT A TIME WITH SOME DIFFICULTY. CALL LIGHT WITHIN REACH, BED ALARM ON, 2 SIDE RAILS UP. WILL CONTINUE TO MONITOR PATIENT.
[2025-09-23 06:53] LABS: NUCLEATED RED BLOOD CELLS 0.0 % (0.0-0.19); PLATELET COUNT (AUTO) 180.0 K/uL (130-400); RED BLOOD CELL COUNT(AUTO) 3.41 MIL/uL (4.50-6.20); RED CELL DISTRIBUTION WIDTH 12.5 % (11.0-15.5); WHITE BLOOD COUNT (AUTO) 7.9 K/uL (4.8-10.8)
[2025-09-23 07:07] LABS: ASPARTATE AMINOTRANSFERASE 40.0 U/L (10-37); CREATININE 1.0 mg/dL (0.5-1.3); GLOMERULAR FILTR. RATE CALC 73.0 mL/min (>90); GLUCOSE,RANDOM 97.0 mg/dL (70-105); SODIUM SERUM 139.0 mmol/L (136-145); TOTAL PROTEIN, SERUM 6.7 g/dL (6.0-8.3); UREA NITROGEN, BLOOD 11.0 mg/dL (7-18)
[2025-09-23 07:40] VITALS: BP 140/58; PULSE 57; RESP 16; TEMP 98.5
[2025-09-23 07:58] VITALS: O2SAT 96
[2025-09-23] MEDS ORDERED: AEC81 PO (11:30)
--- NOTE | 2025-09-23 11:37 | DS ---
[facility] DISCHARGE SUMMARY Date Patient Seen: Sep 23, 2025 Time of Visit: 11:32 Supervising Physician: Xuan ARENAS Primary Care Physician: Dr. 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 As per this is the 2nd time he falls he fell earlier this week on 09/19 pushing a trash can outside. Patient is a poor historian but asked her why he had no LOC, no seizure activity, no blurred vision, headaches, nausea, vomiting or chest pain. Apparently 1:30 a.m. this morning he was attempting to go to the bathroom and fell again with same left- sided rib pain and he also began developing bilateral knee pain so the family brought him in for evaluation. The family also noted that he has had a gradual loss of memory and forgetfulness over the past 1 year. Family denies any alco hol intake but reports patient smokes daily. Temperature 97 pulse 72 respirations 20 blood pressure 175/58 with a pulse oximetry of 97% on room air. WBCs 8.7, hemoglobin 11.1, hematocrit 33.8, platelets 178, Sodium 137, potassium 3.9, Creatinine 1.0, BUN 15 , GFR 73. Chest x-ray reveals mild osteopenia. Bilateral knee x-ray shows tricompartmental osteoarthritis. Upon assessment patient is a quietly in bed with at bedside. Patient is awake alert and oriented x3. Patient denied chest pain, loss of consciousness, headaches, blurred vision. He reports pain to the right shoulder. is asking why do his legs hurt so much explained to her result of bilateral knee x- ray patient has osteoarthritis. Explained plan of care to patient and will continue to monitor vital signs and lab. We will resume home medication once entered. 09/22 - Patient assessed at bedside today. at bedside. Patient is awake alert and oriented x3. Patient denied chest pain, loss of consciousness, headaches, blurred vision nausea or vomiting.VS signs stable. CT of right shoulder done but pending to read. Continues to complain of severe pain to right arm. refuses SNF and wants to take patient home. Anticipate discharge once CT arm results. Today patient is seen sitting up in bed accompanied by his . Patient does not appear to be in any acute distress at this time. Patient is awake alert and oriented x3. Patient remains on room air denies chest discomfort, chest pain or dyspnea. Patient did have a CT scan of the right shoulder done and results show degenerative arthritis, multifocal calcification in the supraspinatus and then consistent with calcific tendinitis, and right upper and right perifissural lung nodules. These findings were discussed with the patient as well as . Both have been advised to follow up in the Pulmonary Clinic in 2 weeks post discharge. Patient will require a follow up CT scan 6- 12 months. Both patient and verbalized understanding. Discussed discharge planning with the family again and offered SNF however declines. She reports she wants to take the patient home. Patient has been advised to follow up with PCP in the next 1-2 days. Patient has been advised to ensure he follows up in Pulmonary Clinic. Vital signs are stable. Labs are within normal limits. Medication reconciliation has been completed. Education regarding current diagnosis been provided to the patient. All questions have been answered. Patient to be discharged home. 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 PCP notified of patients admission, hospital course and discharge. New Medications: Aspirin (Aspirin 81 Mg Ectab) 81 Mg Ectab 81 MG PO DAILY for 30 Days, #30 TAB.EC Continued Medications: Atorvastatin Calcium (Atorvastatin Calcium) 40 Mg Tablet 1 TAB PO DAILY for 30 Days, #30 TAB 0 Refills Calcium Carbonate (Calcium) 600 Mg Calcium (1500 Mg) Tablet 600 MG PO DAILY, TAB Levothyroxine Sodium (Levothyroxine) 25 Mcg Capsule 25 MCG PO DAILY, CAP Lisinopril (Lisinopril) 10 Mg Tablet 1 TAB PO DAILY for 30 Days, #30 TAB 0 Refills Metoprolol Tartrate (Metoprolol Tartrate) 50 Mg Tablet 1 TAB PO BID for 30 Days, #60 TAB 0 Refills Multivitamin (Multi Vitamin Daily) 1 Each Tablet 1 TAB PO DAILY for 30 Days, #30 TAB 0 Refills Delton-3/Dha/Epa/Fish Oil (Fish Oil 1,000 mg Softgel) 300 Mg-1,000 Mg Capsule 1 CAP PO BID for 30 Days, #60 CAP 0 Refills Vitamin B Complex & Vit C No.3 (B Complex with Vitamin C) 15-10-300 Capsule 1 EACH PO DAILY, CAP PHYSICAL EXAM: GENERAL: alert, weak, awake oriented x 3 HEENT: EOMI, Sclera non icteric, moist mucosa NECK: Supple, no JVD, trachea midline LUNGS: Clear breath sounds bilaterally. No wheezes HEART: Regular rate and rhythm. Normal S1 and S2, without murmurs ABD: Abdomen soft, nontender. Bowel sounds present EXT: No clubbing cyanosis or edema, decreased range of motion to bilateral lower extremities patient uses a walker at home NEURO: Alert and oriented to person, follows commands FOLLOW-UP: Follow-up with PCP in 2-3 days Follow up in Pulmonary Clinic in 2 weeks RECOMMENDATIONS: See Discharge Instructions This case was seen and discussed with my supervising physician. More than 30 min utes spent on discharge process, including evaluation of the patient, discussion with nursing staff, medication reconciliation and follow-up appointments ATTESTATION BY PHYSICIAN I reviewed the documentation, medical decision making, and treatment plan as noted by the mid-level provider above. I agree with the findings and plan of care. Oliverio Arenas MD, ECTOR N FNP Sep 23, 2025 11:37
[2025-09-23 12:13] VITALS: BP 138/56; PULSE 56; RESP 16; TEMP 98.3
--- NOTE | 2025-09-23 17:20 | NUR ---
DC PLAN FAMILY HAD QUESTIONS ABOUT HOSPITAL BED. EXPLAINED THAT THEY WOULD NEED TO FOLLOW UP WITH PCP FOR HOSPITAL BED. VERBALIZED UNDERSTANDING. CM LET NURSE KNOW OF CONVERSATION
== END 2025-09-23 14:00 | disposition home or self-care (01) ==
LOC: EDH 03:45 → UNDOADMOB 05:44 → INTOOBSV 05:44 → EDHIP 05:44 → 4DH 16:20 → EDHIP 09-22 10:29 → 4DH 09-22 10:29 → 4AH 09-22 11:00
PROVIDERS: ADMIT Internal Medicine; ATTEND Internal Medicine
DX: M17.0 Bilateral primary osteoarthritis of knee (principal); R07.89 Other chest pain; E03.9 Hypothyroidism, unspecified; G31.9 Degenerative disease of nervous system, unspecified; I10 Essential (primary) hypertension; Z86.73 Personal history of transient ischemic attack (TIA), and cerebral infarction without residual deficits; Z20.822 Contact with and (suspected) exposure to COVID-19; Z79.899 Other long term (current) drug therapy; Z98.890 Other specified postprocedural states; W18.39XA Other fall on same level, initial encounter; Y93.89 Activity, other specified; Y92.89 Other specified places as the place of occurrence of the external cause; Y99.8 Other external cause status
CPT/HCPCS: 96372 ×3; 96360; 96361 ×3; 99285; 84443; 82550 ×2; 83735 ×3; 84484; 80048 ×2; 80305; 85025 ×2; 81001; 36415 ×3; 71045; 73565; 73020; 70450; 84100; 87804 ×2; 87635; 73200; 80053; 85027; 97161; 97530; J1650 ×3; G0378 ×28; J7120; 73560

== ENCOUNTER 2025-09-28 10:15 | Inpatient (IN) | payer OTHER, MEDICARE ==
[~2025-09-28] VITALS: Ht 162.6 cm; Wt 63.5 kg
[~2025-09-28 10:15] MED LIST: AEC81 PO; ATOR40TA71 PO; CALC-1125 PO; LEVO25CA5 PO; LISI10TA24 PO; METO50TA18 PO; MULT-1203 PO; OMEG-131 PO; VITA1CAP17 PO
--- NOTE | 2025-09-28 10:24 | NUR ---
PATIENT IN ROOM
[2025-09-28] MEDS: 0.9%NACL 1000ML 1,000 ML IV ONE (11:18)
[2025-09-28 11:43] LABS: IMMATURE GRANULOCYTE ABSOLUTE 0.04 K/uL (0-1); NUCLEATED RED BLOOD CELLS 0.0 % (0.0-0.19); PLATELET COUNT (AUTO) 232 K/uL (130-400); RED BLOOD CELL COUNT(AUTO) 4.04 MIL/uL (4.50-6.20); RED CELL DISTRIBUTION WIDTH 12.7 % (11.0-15.5); WHITE BLOOD COUNT (AUTO) 10.4 K/uL (4.8-10.8)
--- NOTE | 2025-09-28 11:56 | HMCIMG ---
EXAM: CR CHEST, 1 VIEW CLINICAL HISTORY: GBW. COMPARISON: CR - CHEST 1VW - 09/21/2025 04:21 EST. FINDINGS: LUNGS: New left basilar atelectasis is present, not seen on the prior examination. No focal lobar consolidation or mass is identified. PLEURAL SPACES: Blunting of both costophrenic angles is now present, compatible with small bilateral pleural effusions, representing an interval change from the prior study. No pneumothorax is seen. MEDIASTINUM: The cardiomediastinal silhouette is within normal limits. BONES: No aggressive-appearing osseous lesion is seen. IMPRESSION: * Interval development of left basilar atelectasis with new small bilateral pleural effusions compared with 09/21/2025. * No additional acute cardiopulmonary abnormality identified. /[place]
[2025-09-28 12:03] LABS: ASPARTATE AMINOTRANSFERASE 61 U/L (10-37); CREATINE KINASE, TOTAL 174 U/L (21-232); CREATININE 1.2 mg/dL (0.5-1.3); GLOMERULAR FILTR. RATE CALC 59 mL/min (>90); GLUCOSE,RANDOM 97 mg/dL (70-105); SODIUM SERUM 137 mmol/L (136-145); TOTAL PROTEIN, SERUM 8.1 g/dL (6.0-8.3); UREA NITROGEN, BLOOD 32 mg/dL (7-18)
--- NOTE | 2025-09-28 12:25 | HMCIMG ---
EXAM: CT Head Without IV contrast. CLINICAL HISTORY: ams TECHNIQUE: Axial computed tomography images of the head/brain without intravenous contrast. COMPARISON: None provided. CT images dated September 21, 2025 FINDINGS: BRAIN: No evidence of acute hemorrhage. No mass lesion. Chronic microvascular ischemic white matter disease. No CT evidence for acute territorial infarct. No midline shift or extra-axial collections. VENTRICLES: No hydrocephalus. ORBITS: The orbits are unremarkable. SINUSES AND MASTOIDS: The paranasal sinuses and mastoid air cells are clear. BONES: No fracture. SOFT TISSUES: Unremarkable. IMPRESSION: No acute intracranial abnormality. If clinical concern persist recommend MRI of the brain for further evaluation. /[place]
[2025-09-28 12:33] LABS: APPEARANCE,URINE CLEAR (CLEAR); GLUCOSE, URINE (UA) NEGATIVE (NEGATIVE); LEUKOCYTE ESTERASE ,URINE NEGATIVE Leu/uL (NEGATIVE); NITRATE,URINE NEGATIVE (NEGATIVE); OCCULT BLOOD,URINE NEGATIVE (NEGATIVE)
[2025-09-28 12:41] LABS: ADD UA MICROSCOPIC YES
[2025-09-28] MEDS ORDERED: LACTULOSE 20 GM/30 ML UDCUP PO PRN (13:00)
[2025-09-28] MEDS ORDERED: ARTIFICAL TEARS SOL 15 ML OP PRN (13:00)
[2025-09-28] MEDS ORDERED: MAG/ALUM/SIMETH 30 ML UDCUP PO PRN (13:00)
[2025-09-28] MEDS ORDERED: NITROGLYCERIN 0.4 MG SL TAB SL PRN (13:00)
[2025-09-28] MEDS ORDERED: BENZOCAINE/MENTH/CETYLPYRD CL 1 EACH LOZENGE MM PRN (13:00)
[2025-09-28] MEDS ORDERED: guaiFENesin-DM 200/20MG 10ML PO PRN (13:00)
--- NOTE | 2025-09-28 14:34 | NUR ---
SPEECH THERAPY CALLED, NO ANSWER
--- NOTE | 2025-09-28 14:34 | NUR ---
REPORT GIVEN TO SUE, NURSE
--- NOTE | 2025-09-28 14:35 | ERN ---
ED Note History of Present Illness Stated Complaint: ALTERED MENTAL STATUS Chief Complaint: Altered Mental Status Time Seen by MD: 10:28 Dictation: 85-year-old male presenting to the emergency department with generalized weakness and worsening altered mental status from baseline patient has a history of dementia however family reported decreased p.o. intake. Allergies: Coded Allergies: No Known Allergies (Unverified Allergy, Unknown, 09/21/25) Home Meds Active Scripts Aspirin (ASPIRIN 81 MG ECTAB) 81 Mg Ectab, 81 MG PO DAILY for 30 Days, #30 TAB.EC Prov:PARISALD Dwayne FISH INSPECTOR 09/23/25 Reported Medications Metoprolol Tartrate (Metoprolol Tartrate) 50 Mg Tablet, 1 TAB PO BID for 30 Days, #60 TAB 0 Refills 09/21/25 Atorvastatin Calcium (Atorvastatin Calcium) 40 Mg Tablet, 1 TAB PO DAILY for 30 Days, #30 TAB 0 Refills 09/21/25 Calcium Carbonate (Calcium) 600 Mg Calcium (1500 Mg) Tablet, 600 MG PO DAILY, TAB 09/21/25 Vitamin B Complex & Vit C No.3 (B Complex with Vitamin C) 15-10-300 Capsule, 1 EACH PO DAILY, CAP 09/21/25 Multivitamin (Multi Vitamin Daily) 1 Each Tablet, 1 TAB PO DAILY for 30 Days, #30 TAB 0 Refills 09/21/25 Lisinopril (Lisinopril) 10 Mg Tablet, 1 TAB PO DAILY for 30 Days, #30 TAB 0 Refills 09/21/25 Levothyroxine Sodium (Levothyroxine) 25 Mcg Capsule, 25 MCG PO DAILY, CAP 09/21/25 [place]-3/Dha/Epa/Fish Oil (Fish Oil 1,000 mg Softgel) 300 Mg-1,000 Mg Capsule, 1 CAP PO BID for 30 Days, #60 CAP 0 Refills 09/21/25 Past Medical History Past Medical History: Dementia, High Cholesterol, Hypertension, Hypothyroid, Other Additional Past Medical Hx: POOR HISTORIAN Surgical History: None, Unknown Family History: Negative Social History: Smokers Review of System Dictation Unable to obtain due to altered mental status Initial Vital Sign VS Vital Signs Date Time Temp Pulse Resp B/P (MAP) Pulse Ox O2 Delivery O2 Flow Rate FiO2 09/28/25 10:17 98.2 74 16 169/72 97 Room Air 0 09/28/25 10:24 21 Physical Exam Dictation General: Appears weak and lethargic, dehydrated, afebrile Head/Face: Normocephalic, atraumatic Eyes: PERRL, EOMI, vision at baseline ENT: oral cavity clear, TMs clear, no signs of infection Neck: Trachea midline, supple, no nuchal rigidity Cardiovascular: RRR, normal S1/S2, No MRGs, no JVD Respiratory: CTAB, no respiratory distress, No rales or wheezes Abdomen: Soft, non-tender, non-distended, normal bowel sounds, no guarding or rebound. Skin: Warm, dry, dry mucous membranes MS/Extremity: Pulses equal, no cyanosis, neurovascular intact, FROM Neuro: Appears confused but follows directions, 5/5 strength throughout moves all extremities Results (Laboratory/Radiology) Laboratory/Radiology Laboratory Tests Test 09/28/25 11:22 09/28/25 11:47 09/28/25 12:11 White Blood Count 10.4 K/uL (4.8-10.8) Red Blood Count 4.04 MIL/uL (4.50-6.20) L Hemoglobin 13.2 g/dL (14.0-18.0) L Hematocrit 41.2 % (42-54) L Mean Corpuscular Volume 102.0 fL (79-99) H Mean Corpuscular Hemoglobin 32.7 pg (27.0-33.0) Mean Corpuscular Hemoglobin Concent 32.0 g/dL (32.0-36.0) Red Cell Distribution Width 12.7 % (11.0-15.5) Platelet Count 232 K/uL (130-400) Mean Platelet Volume 9.7 fL (7.5-10.5) Immature Granulocyte % (Auto) 0.4 % (0-1) Neutrophils (%) (Auto) 79.2 % (40.0-77.0) H Lymphocytes (%) (Auto) 11.6 % (21.0-51.0) L Monocytes (%) (Auto) 8.2 % (3.0-13.0) Eosinophils (%) (Auto) 0.5 % (0.0-8.0) Basophils (%) (Auto) 0.1 % (0.0-5.0) Neutrophils # (Auto) 8.3 K/uL (1.8-7.7) H Lymphocytes # (Auto) 1.2 K/uL (1.0-4.8) Monocytes # (Auto) 0.9 K/uL (0.1-1.0) Eosinophils # (Auto) 0.05 K/uL (0.00-0.70) Basophils # (Auto) 0.01 K/uL (0.00-0.20) Absolute Immature Granulocyte (auto 0.04 K/uL (0-1) Nucleated Red Blood Cells 0.0 % (0.0-0.19) Sodium Level 137 mmol/L (136-145) Potassium Level 4.7 mmol/L (3.5-5.1) Chloride Level 100 mmol/L (101-111) L Carbon Dioxide Level 27 mmol/L (21-32) Blood Urea Nitrogen 32 mg/dL (7-18) H Creatinine 1.2 mg/dL (0.5-1.3) Glomerular Filtration Rate Calc 59 mL/min (>90) Random Glucose 97 mg/dL (70-105) Lactic Acid Level 1.8 mmol/L (0.8-2.5) Total Calcium 8.9 mg/dL (8.5-10.1) Total Bilirubin 0.8 mg/dL (0.2-1.0) Direct Bilirubin 0.2 mg/dL (0.0-0.3) Aspartate Amino Transf (AST/SGOT) 61 U/L (10-37) H Alanine Aminotransferase (ALT/SGPT) 85 U/L (12-78) H Alkaline Phosphatase 102 U/L (50-136) Ammonia < 10 umol/L (11-32) L Total Creatine Kinase 174 U/L (21-232) # Troponin I High Sensitivity 29 ng/L (4-75) Total Protein 8.1 g/dL (6.0-8.3) Albumin 3.4 g/dL (3.5-5.0) L Thyroid Stimulating Hormone (TSH) 3.60 uIU/mL (0.36-3.74) # Urine Color YELLOW (YELLOW) Urine Appearance CLEAR (CLEAR) Urine pH 6.5 (5.0-8.0) Urine Specific [place] 1.015 (1.001-1.031) Urine Protein NEGATIVE mg/dL (NEGATIVE) Urine Glucose (UA) NEGATIVE mg/dL (NEGATIVE) Urine Ketones 10 mg/dL (NEGATIVE) H Urine Occult Blood NEGATIVE (NEGATIVE) Urine Nitrate NEGATIVE (NEGATIVE) Urine Bilirubin NEGATIVE mg/dL (NEGATIVE) Urine Urobilinogen 0.2 mg/dL (0.2-1.0) Urine Leukocyte Esterase NEGATIVE [place]/uL Urine RBC 2-5 /HPF (0-1) H Urine WBC 0-1 /HPF (0-1) Urine Bacteria RARE /HPF (None Seen) Procalcitonin < 0.05 ng/mL (0.05-0.5) L Labs Reviewed?: Yes EKG: (+) NSR, (+) rhythm, (+) nonspecific ST T wave chg, (+) nonspecific ST T wave chg ED Course ED Course Orders Procedure Category Date Status Time 12 Lead Ekg Tracing- EKG 09/28/25 Logged Technical 10:32 Ammonia LAB 09/28/25 Complete 10:32 Basic Metabolic Panel LAB 09/28/25 Complete 10:32 Blood Cult LENA 09/28/25 In Process 10:32 Cbc With Differential LAB 09/28/25 Complete 10:32 Creatine Kinase, Total LAB 09/28/25 Complete 10:32 Hepatic Function Panel LAB 09/28/25 Complete 10:32 Lactic Acid LAB 09/28/25 Complete 10:32 Troponin I High LAB 09/28/25 Complete Sensitivity 10:32 Urinalysis Profile LAB 09/28/25 Complete 10:32 Chest 1vw RAD 09/28/25 Resulted 10:32 Ct Head/Brain W/O CT 09/28/25 Resulted Contrast 10:32 Ceftriaxone 2gm Vial PHA 09/28/25 Complete (Rocephin 2gm Inj) 10:32 0.9%Nacl 1000ml (Ns PHA 09/28/25 Complete 1000ml) 11:00 Famotidine 20mg Tab PHA 09/28/25 In Process (Pepcid 20mg Tab) 21:00 Diphenhydramine Hcl PHA 09/28/25 In Process (Benadryl Cap) 13:00 Diphenhydramine Hcl PHA 09/28/25 In Process (Benadryl Inj) 13:00 Acetaminophen 325 Tab PHA 09/28/25 In Process (Tylenol 325mg Tab 13:00 Acetaminophen 325 Tab PHA 09/28/25 In Process (Tylenol 325mg Tab 13:00 Ondansetron 4mg Inj PHA 09/28/25 In Process (Zofran 4mg Inj) 13:00 Mag/Alum/Simeth 30ml PHA 09/28/25 In Process (Maalox Plus 30ml) 13:00 Lactulose 20 Gm/30 Ml PHA 09/28/25 In Process Udcup (Constulose 13:00 Nitroglycerin 0.4mg PHA 09/28/25 In Process Sl Tab (Nitrostat) 13:00 Guaifenesin-Dm PHA 09/28/25 In Process 200/20mg 10ml 13:00 Ipratropium/Albuterol PHA 09/28/25 In Process Neb (Duoneb) 13:00 Famotidine 20mg Vial PHA 09/28/25 Complete (Pepcid 20mg Vial) 21:00 Pt Eval And Treat PT 09/28/25 Transmitted 12:42 Case Management CM 09/28/25 Transmitted Evaluation 12:42 Guaifenesin Sug-Nnamdi PHA 09/28/25 In Process 100 Mg/5ml (Robituss 13:00 Docusate Sodium 100 PHA 09/28/25 In Process Mg Cap (Colace 100mg 13:00 Polyethylene Glycol PHA 09/28/25 In Process 3350 (Miralax 3350 1 13:00 Natural Tears 15ml PHA 09/28/25 In Process (Artificial Tears) 13:00 Benzocaine/Menth/Cetylpyrd PHA 09/28/25 In Process Cl (Cepacol S 13:00 Admit Orders ADM 09/28/25 Transmitted 12:42 Telemetry Monitoring CPOE 09/28/25 Transmitted 12:42 Activity: Br W/Brp CPOE 09/28/25 Transmitted With Assist 12:42 Nothing By Mouth DIET 09/28/25 Transmitted Lunch Procalcitonin LAB 09/28/25 Complete 12:42 Pt Eval Request PT 09/28/25 Transmitted 12:[address] 09/28/25 Transmitted Order 12:42 Initiate PATRICIA 09/28/25 In Process Hyperglycemia Protoco 12:42 Insulin Lispro 100 PHA 09/28/25 In Process Unit/Ml 3ml (Humalog 16:30 Thyroid Stimulating LAB 09/28/25 Complete Hormone 11:22 Current Medications Medications (Trade) Dose Ordered Sig/Christian Route PRN Reason Start Time Stop Time Status Last Admin Dose Admin Ceftriaxone Sodium (Rocephin 2gm Inj) 2 gm ONCE STAT IVPB 09/28/25 10:32 12/21/25 10:35 DC 09/28/25 11:18 Sodium Chloride 1,000 ml @ 0 mls/hr ONCE ONCE IV 09/28/25 11:00 09/28/25 11:01 DC 09/28/25 11:18 Vital Signs Date Time Temp Pulse Resp B/P (MAP) Pulse Ox O2 Delivery O2 Flow Rate FiO2 09/28/25 14:21 98.2 78 16 165/52 100 Room Air* 0 09/28/25 10:24 98.2 74 16 169/72 97 Room Air* 0 21 09/28/25 10:17 98.2 74 16 169/72 97 Room Air 0 Medical Decision Making MDM MDM: Differential diagnosis: Rationale: Tests considered and ordered secondary to shared decision making include: labs, ECG and radiology Previous outside records reviewed: Old ER visits. Risk of complication and/or morbidity or mortality of patient management: None Medications-Per medication reconciliation Need for hospitalization: Patient does meet criteria for hospitalization. Need for emergency major/minor surgery: No There are no social concerns with this patient. Prescription drug management Prescriptions will include symptomatic care Patient's prior external medical records from other ER visits were reviewed by me as indicated. Prior testing and results from previous visits were reviewed. Prior tests were taken into account with medical decision making and resource utilization, independent historian/historians were used to obtain complete medical history. I independently interpreted the test that were performed, results were reviewed by me and considered findings on radiology if ordered. Medical management and examination interpretation discussions were had by me with other qualified healthcare professionals as indicated for the patient's care. 85-year-old male with acute dehydration generalized weakness and and worsening altered mental status from baseline admitting for rule out delirium DX & DISP Disposition: Inpatient Departure Impression: Primary Impression: Altered mental state Additional Impression: Delirium Condition: Stable Referrals: JACLYN JASSO DO (PCP) EFRAIN CARNEY MD Sep 28, 2025 14:35
[2025-09-28 14:59] VITALS: RESP 18; O2SAT 96
[2025-09-28 16:00] VITALS: BP 164/64; PULSE 68; RESP 18; TEMP 97.7
[2025-09-28 16:24] VITALS: O2SAT 97
--- NOTE | 2025-09-28 18:08 | EKG ---
[facility] Test Date: 2025-09-28 Test Time: 10:37:19 Pat Name: NEVILLE CRUZ Department: 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
--- NOTE | 2025-09-28 19:51 | HP ---
[facility] HISTORY & PHYSICAL Date Patient Seen: Sep 28, 2025 Time of Visit: 19:38 Supervising Physician: Dr Chris Christopher Primary Care Physician: Dr Whatley Outpatient Specialists: [ ] Inpatient Consults: [ ] PROBLEM LIST: Acute metabolic encephalopathy, POA Hypertension, POA Hyperlipidemia, POA History of dementia Malnutrition, POA Hypothyroidism, POA Tobacco use, consumes one pack per day, POA PLAN: Admit to medical-surgical floor with telemetry VS per unit protocol Limit sedation Avoid strong narcotics and benzodiazepines Aspiration precautions Speech eval and treat Keep patient NPO for now Complete bedrest for now Bilateral SCDs Keep serum glucose less than 150 Keep SBP less than 160 P.r.n. hydralazine and labetalol CBC, CMP, magnesium level daily HPI: 85-year-old male with past medical history of dementia, hypertension, hyperlipidemia, hypothyroidism who presented to ED via EMS with complaint of alteration in mental status, poor p.o. intake, with associated nausea and vomiting and found to have acute metabolic encephalopathy. Patient was seen and examined in his room with and daughter present at bedside. All information were obtained from family including his medical history. According to daughter patient started not take p.o. since yesterday, had episodes of nausea and vomiting, there is no associated fever, cough, however patient is more confused than usual, and with persistent generalized body weakness. Prior to this incident patient is still able to use walker during ambulation. Daughter also denies any exposure to sick person. In ED stat head CT was done and showed no acute intracranial abnormality, chest x-ray unrevealing for any acute infection or infiltrates. His CBC did not show any elevated WBC however there is elevated neutrophil count, his chemistry showed no acute electrolyte or kidney dysfunction. UA did not reveal any infection. At present patient is currently encephalopathic, confused, and unable to follow simple commands. He is hemodynamically stable, on room air with appropriate oxygen saturation, unable to complete ROS due to current mental state. Discussed with and daughter regarding code status. In the event of cardiac arrest does not want the patient to undergo chest compression, however she is okay with intubation/mechanical ventilation if warranted. PAST MEDICAL HX: see above PAST SURGICAL HX: noncontributory SOCIAL HISTORY: See HPI Coded Allergies: No Known Allergies (Unverified Allergy, Unknown, 12/14/25) REVIEW OF SYSTEMS: Unable to obtain due to alteration in mental status PHYSICAL EXAM: GENERAL: Encephalopathic HEENT: EOMI, Sclera non icteric, moist mucosa NECK: Supple, no JVD, trachea midline LUNGS: Clear breath sounds bilaterally. No wheezes HEART: Regular rate and rhythm. Normal S1 and S2, without murmurs ABD: Abdomen soft, nontender. Bowel sounds present EXT: No clubbing cyanosis or edema NEURO: Encephalopathic Vital Signs (last 8hr) Date Time Temp Pulse Resp B/P (MAP) Pulse Ox O2 Delivery O2 Flow Rate FiO2 09/28/25 16:24 97 Room Air* 0 21 09/28/25 16:00 97.7 68 18 164/64 97 Room Air 09/28/25 14:59 18 N/A Room Air 21 09/28/25 14:21 98.2 78 16 165/52 100 Room Air* 0 21 LABS: Hematology Labs: Test 09/28/25 11:22 Range/Units White Blood Count 10.4 4.8-10.8 K/uL Red Blood Count 4.04 L 4.50-6.20 MIL/uL Hemoglobin 13.2 L 14.0-18.0 g/dL Hematocrit 41.2 L 42-54 % Mean Corpuscular Volume 102.0 H 79-99 fL Mean Corpuscular Hemoglobin 32.7 27.0-33.0 pg Mean Corpuscular Hemoglobin Concent 32.0 32.0-36.0 g/dL Red Cell Distribution Width 12.7 11.0-15.5 % Platelet Count 232 130-400 K/uL Mean Platelet Volume 9.7 7.5-10.5 fL Immature Granulocyte % (Auto) 0.4 0-1 % Neutrophils (%) (Auto) 79.2 H 40.0-77.0 % Lymphocytes (%) (Auto) 11.6 L 21.0-51.0 % Monocytes (%) (Auto) 8.2 3.0-13.0 % Eosinophils (%) (Auto) 0.5 0.0-8.0 % Basophils (%) (Auto) 0.1 0.0-5.0 % Neutrophils # (Auto) 8.3 H 1.8-7.7 K/uL Lymphocytes # (Auto) 1.2 1.0-4.8 K/uL Monocytes # (Auto) 0.9 0.1-1.0 K/uL Eosinophils # (Auto) 0.05 0.00-0.70 K/uL Basophils # (Auto) 0.01 0.00-0.20 K/uL Absolute Immature Granulocyte (auto 0.04 0-1 K/uL Nucleated Red Blood Cells 0.0 0.0-0.19 % Chemistry Labs: Test 09/28/25 16:12 09/28/25 12:11 09/28/25 11:22 Range/Units Whole Blood Glucose 103 70-110 MG/DL Procalcitonin < 0.05 L 0.05-0.5 ng/mL Sodium Level 137 136-145 mmol/L Potassium Level 4.7 3.5-5.1 mmol/L Chloride Level 100 L 101-111 mmol/L Carbon Dioxide Level 27 21-32 mmol/L Blood Urea Nitrogen 32 H 7-18 mg/dL Creatinine 1.2 0.5-1.3 mg/dL Glomerular Filtration Rate Calc 59 >90 mL/min Random Glucose 97 70-105 mg/dL Lactic Acid Level 1.8 0.8-2.5 mmol/L Total Calcium 8.9 8.5-10.1 mg/dL Total Bilirubin 0.8 0.2-1.0 mg/dL Direct Bilirubin 0.2 0.0-0.3 mg/dL Aspartate Amino Transf (AST/SGOT) 61 H 10-37 U/L Alanine Aminotransferase (ALT/SGPT) 85 H 12-78 U/L Alkaline Phosphatase 102 50-136 U/L Ammonia < 10 L 11-32 umol/L Total Creatine Kinase 174 # 21-232 U/L Troponin I High Sensitivity 29 4-75 ng/L Total Protein 8.1 6.0-8.3 g/dL Albumin 3.4 L 3.5-5.0 g/dL Thyroid Stimulating Hormone (TSH) 3.60 # 0.36-3.74 uIU/mL DIAGNOSTICS / RADIOLOGY RESULTS: EXAM: CR CHEST, 1 VIEW CLINICAL HISTORY: GBW. COMPARISON: CR - CHEST 1VW - 09/21/2025 04:21 EST. FINDINGS: LUNGS: New left basilar atelectasis is present, not seen on the prior examination. No focal lobar consolidation or mass is identified. PLEURAL SPACES: Blunting of both costophrenic angles is now present, compatible with small bilateral pleural effusions, representing an interval change from the prior study. No pneumothorax is seen. MEDIASTINUM: The cardiomediastinal silhouette is within normal limits. BONES: No aggressive-appearing osseous lesion is seen. IMPRESSION: * Interval development of left basilar atelectasis with new small bilateral pleural effusions compared with 09/21/2025. * No additional acute cardiopulmonary abnormality identified. /[facility] EXAM: CT Head Without IV contrast. CLINICAL HISTORY: ams TECHNIQUE: Axial computed tomography images of the head/brain without intravenous contrast. COMPARISON: None provided. CT images dated September 21, 2025 FINDINGS: BRAIN: No evidence of acute hemorrhage. No mass lesion. Chronic microvascular ischemic white matter disease. No CT evidence for acute territorial infarct. No midline shift or extra-axial collections. VENTRICLES: No hydrocephalus. ORBITS: The orbits are unremarkable. SINUSES AND MASTOIDS: The paranasal sinuses and mastoid air cells are clear. BONES: No fracture. SOFT TISSUES: Unremarkable. IMPRESSION: No acute intracranial abnormality. If clinical concern persist recommend MRI of the brain for further evaluation. /[place] PLAN NEURO: Minimize central acting medications as possible. Maintain fall precautions, adequate lighting during the day PULMONARY: Supplemental 02 as needed. Maintain aspiration precautions at all times CARDIOVASCULAR: Follow hemodynamics. Vital signs per facility protocol GI & NUTRITION: Continue with nutritional support. Continue stool softeners and laxatives as needed. KIDNEYS & ELECTROLYTES: Strict monitoring of intake, output and overall fluid balance. Avoid nephrotoxic medications to the extent possible. Medications to be dosed according to renal function. Monitor electrolytes and replace as needed ENDOCRINE: Maintain blood glucose between 100-180 at all times. Hypoglycemia protocol in place INFECTIOUS DISEASE: Trend temperature, WBC and procalcitonin level Follow cultures, deescalate antibiotics as soon as possible. Panculture if new onset fever ONCOLOGY/HEMATOLOGY/COAGULATION: Monitor for s/s of bleeding Monitor hemoglobin, coagulation studies as needed SKIN: Pressure ulcer prevention per facility protocol Specialty mattress ORTHO/REHAB: Continue PT/OT Prophylaxis: Continue GI and DVT prophylaxis Code Status: Full Resuscitation Disposition: TBD Supervising physician: BNOG Shaikh AGACN Sep 28, 2025 19:51
[2025-09-28 20:00] VITALS: BP 165/55; PULSE 87; RESP 18; TEMP 98.6
[2025-09-28] MEDS ORDERED: FAMOTIDINE 20MG VIAL IV SCH (21:00)
[2025-09-28] MEDS ORDERED: FAMOTIDINE 20MG TAB PO SCH (21:00)
[2025-09-28] MEDS: FAMOTIDINE 20MG VIAL IV SCH (21:02)
[2025-09-28] MEDS: LACTATED RINGERS 1000ML 1,000 ML IV SCH (21:02)
[2025-09-28 23:08] LABS: AMPHET/METH SCREEN,URINE NEGATIVE (NEGATIVE); BARBITURATE SCREEN, URINE NEGATIVE (NEGATIVE); CANNABINOID SCREEN,URINE NEGATIVE (NEGATIVE); COCAINE SCREEN,URINE NEGATIVE (NEGATIVE)
[2025-09-29] VITALS (9 sets, daily range): BP systolic 102–151; BP diastolic 54–67; PULSE 63–75; RESP 16–18; TEMP 97.3–98.8; O2SAT 96–100
[2025-09-29 08:53] LABS: NUCLEATED RED BLOOD CELLS 0.0 % (0.0-0.19); PLATELET COUNT (AUTO) 197.0 K/uL (130-400); RED BLOOD CELL COUNT(AUTO) 3.25 MIL/uL (4.50-6.20); RED CELL DISTRIBUTION WIDTH 12.8 % (11.0-15.5); WHITE BLOOD COUNT (AUTO) 8.4 K/uL (4.8-10.8)
[2025-09-29 09:19] LABS: CREATININE 1.0 mg/dL (0.5-1.3); GLOMERULAR FILTR. RATE CALC 73.0 mL/min (>90); GLUCOSE,RANDOM 83.0 mg/dL (70-105); PHOSPHORUS 2.5 mg/dL (2.5-4.9); SODIUM SERUM 137.0 mmol/L (136-145); UREA NITROGEN, BLOOD 24.0 mg/dL (7-18)
--- NOTE | 2025-09-29 10:23 | NUR ---
DCP:HOME Pt currently lives at home with his . Pt does use a walker at home to ambulate. Pt does not currently have a provider and or daughter assist with ADLs. PCP is Dr. Imelda Whatley and uses [facility] for any RX needs. Daughter stated that they have discussed hospice and asked the doctor questions about it however states that she wants to talk to all the family members to discuss placing on hospice and PEG tube placement.
--- NOTE | 2025-09-29 13:02 | PN ---
[facility] PROGRESS NOTE Date Patient Seen: Sep 29, 2025 Time of Visit: 12:53 Supervising Physician: [DR Christopher Primary Care Physician: Dr Whatley Outpatient Specialists: [ ] Inpatient Consults: [ ] PROBLEM LIST: Acute metabolic encephalopathy, POA Hypertension, POA Hyperlipidemia, POA Advanced dementia Malnutrition, POA Dehydration Failure to thrive Hypothyroidism, POA Tobacco use, consumes one pack per day, POA INTERVAL HISTORY: 85-year-old male with past medical history of dementia, hypertension, hyperlipidemia, hypothyroidism who presented to ED via EMS with complaint of alteration in mental status, poor p.o. intake, with associated nausea and vomiting and found to have acute metabolic encephalopathy. Patient was seen and examined in his room with and daughter present at bedside. All information were obtained from family including his medical history. According to daughter patient started not take p.o. since yesterday, had episodes of nausea and vomiting, there is no associated fever, cough, however patient is more confused than usual, and with persistent generalized body weakness. Prior to this incident patient is still able to use walker during ambulation. Daughter also denies any exposure to sick person. In ED stat head CT was done and showed no acute intracranial abnormality, chest x-ray unrevealing for any acute infection or infiltrates. His CBC did not show any elevated WBC however there is elevated neutrophil count, his chemistry showed no acute electrolyte or kidney dysfunction. UA did not reveal any infection. Discussed with and daughter regarding code status. In the event of cardiac arrest does not want the patient to undergo chest compression, however she is okay with intubation/mechanical ventilation if warranted. 09/29 - patient is seen and evaluated at the bedside. Patient is sitting up in bed with multiple family members by his side. Patient continues to be very weak, deconditioned. Patient is continues to be encephalopathic. Patient is awake and alert. Daughter reports his mental status is somewhat improved today in comparison to yesterday. Patient does have advanced dementia. Patient's daughter reports his oral intake has progressively been worsening in the last couple of months and is hard for them to get him to eat or drink anything. Had a long discussion with daughter regarding the progressive disease of dementia. Daughter asked multiple questions regarding hospice and PEG tube placement. She reports she would like to talk to the rest of her family as she is aware that he is declining. Patient does remain on room air with no signs of respiratory distress. Patient is hemodynamically stable. Labs are within normal limits. We will ask speech therapy to evaluate the patient. We will continue IV fluids for now. We will repeat a.m. labs. PLAN SUMMARY: Supplemental oxygen as needed Continue IV fluids Speech therapy evaluation GI for possible PEG if agrees Palliative care consult Hospice if family agrees Repeat a.m. labs REVIEW OF SYSTEMS: Unable to obtain due to alteration in mental status PHYSICAL EXAM: GENERAL: Encephalopathic HEENT: EOMI, Sclera non icteric, moist mucosa NECK: Supple, no JVD, trachea midline LUNGS: Clear breath sounds bilaterally. No wheezes HEART: Regular rate and rhythm. Normal S1 and S2, without murmurs ABD: Abdomen soft, nontender. Bowel sounds present EXT: No clubbing cyanosis or edema NEURO: Encephalopathic Vital Signs (last 8hr) Date Time Temp Pulse Resp B/P (MAP) Pulse Ox O2 Delivery O2 Flow Rate FiO2 09/29/25 09:00 96 Room Air* 0 21 09/29/25 08:00 98.1 68 16 149/58 96 Room Air 09/29/25 07:20 72 18 N/A Room Air 21 LABS: Hematology Labs: Test 09/29/25 08:48 09/28/25 11:22 Range/Units White Blood Count 8.4 4.8-10.8 K/uL Red Blood Count 3.25 L 4.50-6.20 MIL/uL Hemoglobin 10.8 L 14.0-18.0 g/dL Hematocrit 33.1 L 42-54 % Mean Corpuscular Volume 101.8 H 79-99 fL Mean Corpuscular Hemoglobin 33.2 H 27.0-33.0 pg Mean Corpuscular Hemoglobin Concent 32.6 32.0-36.0 g/dL Red Cell Distribution Width 12.8 11.0-15.5 % Platelet Count 197 130-400 K/uL Mean Platelet Volume 9.2 7.5-10.5 fL Nucleated Red Blood Cells 0.0 0.0-0.19 % Immature Granulocyte % (Auto) 0.4 0-1 % Neutrophils (%) (Auto) 79.2 H 40.0-77.0 % Lymphocytes (%) (Auto) 11.6 L 21.0-51.0 % Monocytes (%) (Auto) 8.2 3.0-13.0 % Eosinophils (%) (Auto) 0.5 0.0-8.0 % Basophils (%) (Auto) 0.1 0.0-5.0 % Neutrophils # (Auto) 8.3 H 1.8-7.7 K/uL Lymphocytes # (Auto) 1.2 1.0-4.8 K/uL Monocytes # (Auto) 0.9 0.1-1.0 K/uL Eosinophils # (Auto) 0.05 0.00-0.70 K/uL Basophils # (Auto) 0.01 0.00-0.20 K/uL Absolute Immature Granulocyte (auto 0.04 0-1 K/uL Chemistry Labs: Test 09/29/25 11:40 09/29/25 08:48 09/28/25 12:11 09/28/25 11:22 Range/Units Whole Blood Glucose 92 70-110 MG/DL Sodium Level 137 136-145 mmol/L Potassium Level 3.8 3.5-5.1 mmol/L Chloride Level 104 101-111 mmol/L Carbon Dioxide Level 26 21-32 mmol/L Blood Urea Nitrogen 24 H 7-18 mg/dL Creatinine 1.0 0.5-1.3 mg/dL Glomerular Filtration Rate Calc 73 >90 mL/min Random Glucose 83 70-105 mg/dL Total Calcium 7.9 L 8.5-10.1 mg/dL Phosphorus Level 2.5 2.5-4.9 mg/dL Magnesium Level 2.10 1.80-2.40 mg/dL Thyroid Stimulating Hormone (TSH) 3.09 0.36-3.74 uIU/mL Procalcitonin < 0.05 L 0.05-0.5 ng/mL Free Thyroxine (T4) Direct 1.25 0.76-1.46 ng/dL Lactic Acid Level 1.8 0.8-2.5 mmol/L Total Bilirubin 0.8 0.2-1.0 mg/dL Direct Bilirubin 0.2 0.0-0.3 mg/dL Aspartate Amino Transf (AST/SGOT) 61 H 10-37 U/L Alanine Aminotransferase (ALT/SGPT) 85 H 12-78 U/L Alkaline Phosphatase 102 50-136 U/L Ammonia < 10 L 11-32 umol/L Total Creatine Kinase 174 # 21-232 U/L Troponin I High Sensitivity 29 4-75 ng/L Total Protein 8.1 6.0-8.3 g/dL Albumin 3.4 L 3.5-5.0 g/dL DIAGNOSTICS / RADIOLOGY RESULTS: PATIENT: NEVILLE CRUZ MR#: [id number] : 1940 SEX: M AGE: 85 LOCATION: [facility] ORDER 33 STATUS: REG ER REPORT#: [id number] SERVICE 103 REASON: ams ORDERING PHYSICIAN: EFRAIN CARNEY MD PROCEDURE: HEAD WO - CT HEAD/BRAIN W/O CONTRAST EXAM: CT Head Without IV contrast. CLINICAL HISTORY: ams TECHNIQUE: Axial computed tomography images of the head/brain without intravenous contrast. COMPARISON: None provided. CT images dated September 21, 2025 FINDINGS: BRAIN: No evidence of acute hemorrhage. No mass lesion. Chronic microvascular ischemic white matter disease. No CT evidence for acute territorial infarct. No midline shift or extra-axial collections. VENTRICLES: No hydrocephalus. ORBITS: The orbits are unremarkable. SINUSES AND MASTOIDS: The paranasal sinuses and mastoid air cells are clear. BONES: No fracture. SOFT TISSUES: Unremarkable. IMPRESSION: No acute intracranial abnormality. If clinical concern persist recommend MRI of the brain for further evaluation. /[place] DICTATED BY: AARON ROBERTS Jr., MD DATE: 09/28/251324 ELECTRONICALLY SIGNED BY: AARON ROBERTS Jr., MD DATE: 09/28/251324 PLAN NEURO: Minimize central acting medications as possible. Maintain fall precautions, adequate lighting during the day PULMONARY: Supplemental 02 as needed. Maintain aspiration precautions at all times CARDIOVASCULAR: Follow hemodynamics. Vital signs per facility protocol GI & NUTRITION: Continue with nutritional support. Continue stool softeners and laxatives as needed. KIDNEYS & ELECTROLYTES: Strict monitoring of intake, output and overall fluid balance. Avoid nephrotoxic medications to the extent possible. Medications to be dosed according to renal function. Monitor electrolytes and replace as needed ENDOCRINE: Maintain blood glucose between 100-180 at all times. Hypoglycemia protocol in place INFECTIOUS DISEASE: Trend temperature, WBC and procalcitonin level Follow cultures, deescalate antibiotics as soon as possible. Panculture if new onset fever ONCOLOGY/HEMATOLOGY/COAGULATION: Monitor for s/s of bleeding Monitor hemoglobin, coagulation studies as needed SKIN: Pressure ulcer prevention per facility protocol Specialty mattress ORTHO/REHAB: Continue PT/OT Prophylaxis: Continue GI and DVT prophylaxis Code Status: Full Resuscitation Disposition: Home With hospice if family agrees ATTESTATION BY PHYSICIAN I have evaluated the patient chart, medical records, and spoke with appropriate staff. I reviewed the documentation, medical decision making, and treatment plan as noted by the mid-level provider above. I agree with the findings and plan of care. Chris Christopher MD,LD N MERCHANDISING COORDINATOR Sep 29, 2025 13:02
--- NOTE | 2025-09-29 17:00 | NUR ---
BEDSIDE SWALLOW EVAL COMPLETED. +s/s of aspiration. RECOMMEND: NPO until MBSS. As per family, patient not eating enough to meet nutrition/hydration. May want to consider prevention specialist alternate means of nutrition/hydration to compensate for poor oral intake. AFFILIATE MARKETING COORDINATOR reviewed results and recommendations with patient, family (, son, and daughter), and nurse Vanessa. AFFILIATE MARKETING COORDINATOR educated patient on risks and consequences of aspiration. Speech therapy will follow up with MBSS. All questions answered.
[2025-09-29] MEDS: HALOPERIDOL INJ 5 MG/ML VIAL IM ONE (21:27)
[2025-09-30] VITALS (13 sets, daily range): BP systolic 92–178; BP diastolic 40–65; PULSE 65–95; RESP 17–20; TEMP 97.6–98.2; O2SAT 96–100
[2025-09-30 04:23] LABS: NUCLEATED RED BLOOD CELLS 0.0 % (0.0-0.19); PLATELET COUNT (AUTO) 192.0 K/uL (130-400); RED BLOOD CELL COUNT(AUTO) 3.53 MIL/uL (4.50-6.20); RED CELL DISTRIBUTION WIDTH 12.5 % (11.0-15.5); WHITE BLOOD COUNT (AUTO) 8.5 K/uL (4.8-10.8)
[2025-09-30 04:41] LABS: CREATININE 1.0 mg/dL (0.5-1.3); GLOMERULAR FILTR. RATE CALC 73.0 mL/min (>90); GLUCOSE,RANDOM 93.0 mg/dL (70-105); PHOSPHORUS 2.6 mg/dL (2.5-4.9); SODIUM SERUM 138.0 mmol/L (136-145); UREA NITROGEN, BLOOD 17.0 mg/dL (7-18)
--- NOTE | 2025-09-30 14:00 | NUR ---
MBSS COMPLETED. ASPIRATION with pureed (applesauce/too runny) during the swallow followed by immediate cough response; non-transient penetrations with moderately thick liquids. RECOMMEND: pureed solids (not too runny/NO APPLESAUCE), thin liquids, and meds crushed with pureed as tolerated. May want to consider shelter alternate means of nutrition/hydration (PEG tube placement) to supplement for poor oral intake. COMPENSATORY STRATEGIES: 1. sit upright during oral intake 2. small bites/sips 3. slow oral intake 4. extra dry swallows DIAGNOSTIC FINDINGS: Pt presented with mild oropharyngeal dysphagia characterized by decreased oral motor strength, ROM, and coordination; decreased tongue base retraction; delayed pharyngeal response trigger and decreased hyo-laryngeal elevation/excursion. These characteristics were evidenced by decreased labial closure with anterior spillage, increased bolus time in oral cavity, decreased bolus formation and manipulation; residue on roof of mouth and body of tongue; premature spillage to valleculae with spillover to pyriform sinuses; residue on base of tongue, valleculae and posterior pharyngeal wall cleared with extra dry swallows resulting in ASPIRATION with pureed (applesauce/too runny) during the swallow followed by immediate cough response; non-transient penetrations with moderately thick liquids. DRAWING IN HAND reviewed results and recommendations with patient and nurse. DRAWING IN HAND educated patient on risks and consequences of aspiration. Speech therapy warranted at this time to address oropharyngeal dysphagia as tolerated due to Hx of dementia and decreased participation. All questions answered. RECOMMENDATIONS: Dysphagia Therapy 1-3X week to increase oral motor strength and pharyngeal swallow: LTG#1: Pt will tolerate least restrictive diet to meet nutrition/hydration with no s/s of aspiration. LTG#2: Skilled education Pt/family/staff STG#1: Pt will participate in laryngeal elevation/excursion exercises with 90% accuracy and min A. STG#2: Pt will participate in tongue base retraction exercises with 90% acc/with Min A. STG#3: Pt will participate in oral motor exercises with 90% acc/with Min A. STG#4: Pt will tolerate modified diet of pureed with no overt s/s of aspiration. STG#5: Skilled education Pt/family/staff. Addendum: 09/30/[address] KIMANI AGUIRRE Amended: Links added.
--- NOTE | 2025-09-30 20:56 | PN ---
[facility] PROGRESS NOTE Date Patient Seen: Sep 30, 2025 Time of Visit: 20:52 Supervising Physician: QUANG CONN MD Primary Care Physician: Dr Whatley Outpatient Specialists: [ ] Inpatient Consults: [ ] PROBLEM LIST: Acute metabolic encephalopathy, POA Hypertension, POA Hyperlipidemia, POA Advanced dementia Malnutrition, POA Dehydration Failure to thrive Hypothyroidism, POA Tobacco use, consumes one pack per day, POA INTERVAL HISTORY: Patient is seen and evaluated. He is in bed and he is awake and alert. He is on room air, no acute distress. Afebrile, well hydrated. Appetite remains poor, no nausea or vomiting Voiding, no urgency or dysuria No diarrhea Family considering hospice care REVIEW OF SYSTEMS: Unable to obtain due to alteration in mental status PHYSICAL EXAM: GENERAL: Encephalopathic HEENT: EOMI, Sclera non icteric, moist mucosa NECK: Supple, no JVD, trachea midline LUNGS: Clear breath sounds bilaterally. No wheezes HEART: Regular rate and rhythm. Normal S1 and S2, without murmurs ABD: Abdomen soft, nontender. Bowel sounds present EXT: No clubbing cyanosis or edema NEURO: Encephalopathic Vital Signs (last 8hr) Date Time Temp Pulse Resp B/P (MAP) Pulse Ox O2 Delivery O2 Flow Rate FiO2 09/30/25 20:00 98.1 83 18 99 Room Air 09/30/25 19:50 96 Room Air* 0 21 09/30/25 18:54 95 18 N/A Room Air 21 09/30/25 15:20 73 17 92/56 99 Room Air LABS: Hematology Labs: Test 09/30/25 04:12 Range/Units White Blood Count 8.5 4.8-10.8 K/uL Red Blood Count 3.53 L 4.50-6.20 MIL/uL Hemoglobin 11.7 L 14.0-18.0 g/dL Hematocrit 35.8 L 42-54 % Mean Corpuscular Volume 101.4 H 79-99 fL Mean Corpuscular Hemoglobin 33.1 H 27.0-33.0 pg Mean Corpuscular Hemoglobin Concent 32.7 32.0-36.0 g/dL Red Cell Distribution Width 12.5 11.0-15.5 % Platelet Count 192 130-400 K/uL Mean Platelet Volume 9.3 7.5-10.5 fL Nucleated Red Blood Cells 0.0 0.0-0.19 % Chemistry Labs: Test 09/30/25 19:11 09/30/25 04:12 09/29/25 08:48 Range/Units Whole Blood Glucose 85 70-110 MG/DL Sodium Level 138 136-145 mmol/L Potassium Level 3.9 3.5-5.1 mmol/L Chloride Level 103 101-111 mmol/L Carbon Dioxide Level 24 21-32 mmol/L Blood Urea Nitrogen 17 7-18 mg/dL Creatinine 1.0 0.5-1.3 mg/dL Glomerular Filtration Rate Calc 73 >90 mL/min Random Glucose 93 70-105 mg/dL Total Calcium 8.5 8.5-10.1 mg/dL Phosphorus Level 2.6 2.5-4.9 mg/dL Magnesium Level 1.90 1.80-2.40 mg/dL Thyroid Stimulating Hormone (TSH) 3.09 0.36-3.74 uIU/mL DIAGNOSTICS / RADIOLOGY RESULTS: [ ] PLAN Patient will need a repeat CT scan of the chest in six weeks which can be done as an outpatient In the meantime we will continue with IV hydration and monitor renal clearance Fall precautions and aspiration precautions Continue course of IV antibiotics NEURO: Minimize central acting medications as possible. Maintain fall precautions, adequate lighting during the day PULMONARY: Supplemental 02 as needed. Maintain aspiration precautions at all times CARDIOVASCULAR: Follow hemodynamics. Vital signs per facility protocol GI & NUTRITION: Continue with nutritional support. Continue stool softeners and laxatives as needed. KIDNEYS & ELECTROLYTES: Strict monitoring of intake, output and overall fluid balance. Avoid nephrotoxic medications to the extent possible. Medications to be dosed according to renal function. Monitor electrolytes and replace as needed ENDOCRINE: Maintain blood glucose between 100-180 at all times. Hypoglycemia protocol in place INFECTIOUS DISEASE: Trend temperature, WBC and procalcitonin level Follow cultures, deescalate antibiotics as soon as possible. Panculture if new onset fever ONCOLOGY/HEMATOLOGY/COAGULATION: Monitor for s/s of bleeding Monitor hemoglobin, coagulation studies as needed SKIN: Pressure ulcer prevention per facility protocol Specialty mattress ORTHO/REHAB: Continue PT/OT Prophylaxis: Continue GI and DVT prophylaxis Code Status: Full Resuscitation Disposition: Family considering hospice, consult case management for assistance and guidance. I personally scribed for QUANG CONN MD (SAAD) on 09/30/25 at 20:56. Electronically submitted by Jovan Manning ([email or web address]). QUANG CONN MD Sep 30, 2025 20:56
[2025-10-01] VITALS (9 sets, daily range): BP systolic 152–182; BP diastolic 56–64; PULSE 63–78; RESP 18–20; TEMP 96.8–98.1; O2SAT 93–100
[2025-10-01 04:18] LABS: NUCLEATED RED BLOOD CELLS 0.0 % (0.0-0.19); PLATELET COUNT (AUTO) 210.0 K/uL (130-400); RED BLOOD CELL COUNT(AUTO) 3.61 MIL/uL (4.50-6.20); RED CELL DISTRIBUTION WIDTH 12.2 % (11.0-15.5); WHITE BLOOD COUNT (AUTO) 8.6 K/uL (4.8-10.8)
[2025-10-01 04:44] LABS: ASPARTATE AMINOTRANSFERASE 75 U/L (10-37); CREATININE 0.9 mg/dL (0.5-1.3); GLOMERULAR FILTR. RATE CALC 83 mL/min (>90); GLUCOSE,RANDOM 86 mg/dL (70-105); PHOSPHORUS 3.4 mg/dL (2.5-4.9); SODIUM SERUM 137 mmol/L (136-145); TOTAL PROTEIN, SERUM 6.8 g/dL (6.0-8.3); UREA NITROGEN, BLOOD 13 mg/dL (7-18)
[2025-10-01] MEDS: ASPIRIN 81 MG EC TAB PO SCH (10:31)
[2025-10-01] MEDS: LISINOPRIL 10 MG TABLET PO SCH (10:31)
[2025-10-01] MEDS: ENOXAPARIN SODIUM 40 MG/0.4 ML SYRINGE SQ SCH (10:32)
[2025-10-01] MEDS: MULTIVITAMIN TABLET PO SCH (10:32)
--- NOTE | 2025-10-01 15:13 | PN ---
[facility] PROGRESS NOTE Date Patient Seen: Oct 01, 2025 Time of Visit: 15:11 Supervising Physician: QUANG CONN MD Primary Care Physician: Dr Whatley Outpatient Specialists: [ ] Inpatient Consults: [ ] PROBLEM LIST: Acute metabolic encephalopathy, POA Hypertension, POA Hyperlipidemia, POA Advanced dementia Malnutrition, POA Dehydration Failure to thrive Hypothyroidism, POA Tobacco use, consumes one pack per day, POA INTERVAL HISTORY: Patient is seen and evaluated. Mr. Marte is awake and alert and oriented to self. He is pleasantly confused, he is on room air, well hydrated in no acute distress. No fevers in the last 24 hours No seizures Tolerating oral intake without nausea or vomiting Voiding, no hematuria No constipation or diarrhea REVIEW OF SYSTEMS: Pleasantly confused, oriented to self only. Most information obtained from nursing staff. No new issues PHYSICAL EXAM: GENERAL: Encephalopathic HEENT: EOMI, Sclera non icteric, moist mucosa NECK: Supple, no JVD, trachea midline LUNGS: Clear breath sounds bilaterally. No wheezes HEART: Regular rate and rhythm. Normal S1 and S2, without murmurs ABD: Abdomen soft, nontender. Bowel sounds present EXT: No clubbing cyanosis or edema NEURO: Encephalopathic Vital Signs (last 8hr) Date Time Temp Pulse Resp B/P (MAP) Pulse Ox O2 Delivery O2 Flow Rate FiO2 10/01/25 12:00 98.1 65 18 155/59 100 Room Air 10/01/25 08:00 96.8 67 18 155/57 93 Room Air LABS: Hematology Labs: Test 10/01/25 04:07 Range/Units White Blood Count 8.6 4.8-10.8 K/uL Red Blood Count 3.61 L 4.50-6.20 MIL/uL Hemoglobin 11.8 L 14.0-18.0 g/dL Hematocrit 35.8 L 42-54 % Mean Corpuscular Volume 99.2 H 79-99 fL Mean Corpuscular Hemoglobin 32.7 27.0-33.0 pg Mean Corpuscular Hemoglobin Concent 33.0 32.0-36.0 g/dL Red Cell Distribution Width 12.2 11.0-15.5 % Platelet Count 210 130-400 K/uL Mean Platelet Volume 9.3 7.5-10.5 fL Nucleated Red Blood Cells 0.0 0.0-0.19 % Chemistry Labs: Test 10/01/25 11:57 10/01/25 04:07 Range/Units Whole Blood Glucose 86 70-110 MG/DL Sodium Level 137 136-145 mmol/L Potassium Level 3.7 3.5-5.1 mmol/L Chloride Level 102 101-111 mmol/L Carbon Dioxide Level 25 21-32 mmol/L Blood Urea Nitrogen 13 7-18 mg/dL Creatinine 0.9 0.5-1.3 mg/dL Glomerular Filtration Rate Calc 83 >90 mL/min Random Glucose 86 70-105 mg/dL Lactic Acid Level 1.7 0.8-2.5 mmol/L Total Calcium 8.6 8.5-10.1 mg/dL Phosphorus Level 3.4 2.5-4.9 mg/dL Magnesium Level 1.80 1.80-2.40 mg/dL Total Bilirubin 0.7 0.2-1.0 mg/dL Aspartate Amino Transf (AST/SGOT) 75 H 10-37 U/L Alanine Aminotransferase (ALT/SGPT) 51 12-78 U/L Alkaline Phosphatase 85 50-136 U/L Ammonia < 10 L 11-32 umol/L Total Protein 6.8 6.0-8.3 g/dL Albumin 2.8 L 3.5-5.0 g/dL DIAGNOSTICS / RADIOLOGY RESULTS: [None review today ] PLAN Family has requested hospice Patient on room air and pleasantly confused, hospice can be done at home From pulmonary standpoint patient is hemodynamically stable for safe medical discharge and transferred to hospice care. NEURO: Minimize central acting medications as possible. Maintain fall precautions, adequate lighting during the day PULMONARY: Supplemental 02 as needed. Maintain aspiration precautions at all times CARDIOVASCULAR: Follow hemodynamics. Vital signs per facility protocol GI & NUTRITION: Continue with nutritional support. Continue stool softeners and laxatives as needed. KIDNEYS & ELECTROLYTES: Strict monitoring of intake, output and overall fluid balance. Avoid nephrotoxic medications to the extent possible. Medications to be dosed according to renal function. Monitor electrolytes and replace as needed ENDOCRINE: Maintain blood glucose between 100-180 at all times. Hypoglycemia protocol in place INFECTIOUS DISEASE: Trend temperature, WBC and procalcitonin level Follow cultures, deescalate antibiotics as soon as possible. Panculture if new onset fever ONCOLOGY/HEMATOLOGY/COAGULATION: Monitor for s/s of bleeding Monitor hemoglobin, coagulation studies as needed SKIN: Pressure ulcer prevention per facility protocol Specialty mattress ORTHO/REHAB: Continue PT/OT Prophylaxis: Continue GI and DVT prophylaxis Code Status: Full Resuscitation Disposition: Home with hospice, consult case management. I personally scribed for QUANG CONN MD ([email or web address]) on 10/01/25 at 15:13. Electronically submitted by Jovan Manning ([email or web address]). QUANG CONN MD Oct 01, 2025 15:13
[2025-10-02] VITALS: BP 151/57; PULSE 65; RESP 16; TEMP 97.7
[2025-10-02 04:00] VITALS: BP 163/65; PULSE 66; RESP 18; TEMP 97.9
[2025-10-02 08:10] VITALS: BP 169/59; PULSE 56; RESP 16; TEMP 98.1
[2025-10-02 09:50] VITALS: O2SAT 98
[2025-10-02 11:37] VITALS: BP 164/53; PULSE 50; RESP 16; TEMP 98.4
--- NOTE | 2025-10-02 14:30 | DS ---
[facility] DISCHARGE SUMMARY Date Patient Seen: Oct 02, 2025 Time of Visit: 14:25 Supervising Physician: QUANG CONN MD Primary Care Physician: Dr Whatley Outpatient Specialists: [ ] Inpatient Consults: [ ] PROBLEM LIST: Acute metabolic encephalopathy, POA Hypertension, POA Hyperlipidemia, POA Advanced dementia Malnutrition, POA Dehydration Failure to thrive Hypothyroidism, POA Tobacco use, consumes one pack per day, POA HOSPITAL COURSE: HPI Patient admitted through the emergency department. Presented with altered mental status characterized by confusion, lethargy and poor appetite. Admitted for further medical management ACTIVE PROBLEM LIST FOR THE HOSPITALIZATION: - Acute multifactorial metabolic encephalopathy - Acute dehydration on admission CHRONIC PROBLEMS: - Hypothyroidism - HTN MOTHER BABY RN FINDINGS/RECOMMENDATIONS: [ ] PROCEDURES: as mentioned above DISCHARGE MEDICATIONS: Pt hemodynamically stable and afebrile at time of discharge. PHYSICAL EXAM: GENERAL: Awake, alert, oriented to self. Following commands. HEENT: EOMI, Sclera non icteric, moist mucosa NECK: Supple, no JVD, trachea midline LUNGS: Clear breath sounds bilaterally. No wheezes HEART: Regular rate and rhythm. Normal S1 and S2, without murmurs ABD: Abdomen soft, nontender. Bowel sounds present EXT: No clubbing cyanosis or edema NEURO: no neurological deficit noted FOLLOW-UP: Follow-up with PCP in 2-3 days RECOMMENDATIONS: See Discharge Instructions Time spent with patient, nurse and immigration case worker during discharge plannin minutes I personally scribed for QUANG CONN MD (SAAD) on 10/02/25 at 14:30. Electronically submitted by Jovan Manning ([email or web address]). QUANG CONN MD Oct 02, 2025 14:30
--- NOTE | 2025-10-02 14:32 | NUR ---
DISCHARGE DISCHARGE ORDERS FOR PATIENT TO BE DISCHARGED HOME WITH HOSPICE OBTAINED. CONTACTED PATIENT'S , ARMEN CRUZ, AND NOTIFIED OF DISCHARGE. PROVIDED DISCHARGE INSTRUCTIONS, VOICED UNDERSTANDING. IV DISCONTINUED, CATHETER INTACT, NO S/S OF INFECTION NOTED TO SITE. PATIENT TOLERATED WELL. BANDS REMOVED PRIOR TO DISCHARGE 1120AM REPORT GIVEN TO QUENTIN RN WITH [facility]. PROVIDED MD'S ORDERS AND RECOMMENDATIONS ALONG WITH PATIENT'S CONDITION. VOICED UNDERSTANDING 1418 EMS CONTACTED FOR DISCHARGE TRANSPORT. PENDING ARRIVAL.
--- NOTE | 2025-10-02 15:31 | NUR ---
DISCHARGE 1510 PATIENT LEFT VIA STRETCHER, ACCOMPANIED BY DAUGHTER. NO S/S OF DISTRESS NOTED.
--- NOTE | 2025-10-03 10:23 | HMCIMG ---
MODIFIED BARIUM SWALLOW W CINE REASON: + S/S OF ASPERATION FINDINGS: Fluoroscopic assistance was provided to the speech pathologist while performing examination. For findings and dietary recommendations, refer to speech pathologist's report. FLUORO TIME: 5.9 minutes IMPRESSION: Modified barium swallow as described.
== END 2025-10-02 15:00 | disposition hospice, home (50) | DRG 640 ==
LOC: EDH 10:15 → EDHIP 12:42 → 3CH 15:00 → 3AH 09-29 21:11 → OBSVTOIN 09-30 16:00
PROVIDERS: ADMIT Internal Medicine Critical Care Medicine; ATTEND Internal Medicine Critical Care Medicine
DX: E86.0 Dehydration (principal); G93.41 Metabolic encephalopathy; E46 Unspecified protein-calorie malnutrition; E03.9 Hypothyroidism, unspecified; I10 Essential (primary) hypertension; F03.90 Unspecified dementia, unspecified severity, without behavioral disturbance, psychotic disturbance, mood disturbance, and anxiety; E78.00 Pure hypercholesterolemia, unspecified; R62.7 Adult failure to thrive; Z68.24 Body mass index [BMI] 24.0-24.9, adult
CPT/HCPCS: 36415; 36600; 70450; 71045; 74230; 80048; 80053; 80076; 80305; 81001; 82140; 82550; 82948; 83605; 83735; 84100; 84145; 84439; 84443; 84484; 85025; 85027; 87040; 92610; 92611; 93005; 94664; 96365; 99285; G0378; J0696; J1630; J1650; J7030; J7120; J1308